=== PATIENT | female | born 1970 | race Hispanic/Latino ===

== ENCOUNTER 2018-05-14 13:26 | Emergency (ER) | payer SELFPAY ==
--- OUTSIDE RECORDS SUMMARY | 2018-05-14 13:29 | XMS REPORT | Clinical Summary ---
:1970 Author Organization [facility] Address [address] [place] [address] Care Team Providers Name Role Phone Sharpfarhana Primary Care Provider Allergies Active Allergy Reactions Severity Noted Date Comments Codeine Other (See Comments) 09/13/2017 Stomach pain Medications Medication Sig Dispensed Refills Start Date End Date Status metoprolol Take 100 mg by 0 Active (TOPROL-XL) 100 MG mouth daily. 24 hr tablet entecavir Take 0.5 mg by 0 Active (BARACLUDE) 0.5 MG mouth daily. tablet aspirin 81 MG Take 1 tablet (81 30 tablet 2 09/16/2017 09/17/19 Active chewable tablet mg total) by 19 mouth daily. atorvastatin Take 1 tablet (40 30 tablet 2 09/15/2017 09/16/19 Active (LIPITOR) 40 MG mg total) by 19 tablet mouth nightly. cyanocobalamin Take 1 tablet 30 tablet 2 09/15/2017 09/16/19 Active (VITAMIN B-12) 100 (100 mcg total) 19 MCG tablet by mouth daily. sulfamethoxazole-tr Take 1 tablet 5 tablet 0 09/15/2017 09/16/19 Discontinued imethoprim (BACTRIM (160 mg of 18 DS) 800-160 mg per trimethoprim tablet total) by mouth 2 (two) times daily for 5 doses. ondansetron Take 1 tablet (4 30 tablet 0 09/15/2017 09/23/19 (ZOFRAN) 4 MG mg total) by 18 tablet mouth every 8 (eight) hours as needed for Nausea for up to 7 days. ciprofloxacin HCl Take 1 tablet 10 tablet 0 09/15/2017 09/21/19 (CIPRO) 500 MG (500 mg total) by 18 tablet mouth 2 (two) times daily for 5 days. Active Problems Problem Noted Date Anxiety 09/15/2017 Essential hypertension 09/13/2017 Hepatitis B 09/13/2017 Hyperlipidemia 09/13/2017 SVT (supraventricular tachycardia) 09/13/2017 UTI (urinary tract infection) 09/13/2017 Ischemic stroke 09/12/2017 S/P admn tPA in diff fac w/n last 24 hr bef adm to crnt fac 09/12/2017 Encounters Date Type Specialty Care Team Description 09/12/2017 - Hospital Intensive Care [facility] Pillai, Ischemic stroke (HCC ); 09/15/2017 Encounter Horacio Hyperlipidemia, unspecified hyperlipidemia type; MD Matt SVT (supraventricular tachycardia) (HCC); Tramaine Murphy Urine culture positive; MD Robert Cerebellar stroke, acute (HCC); Vin Denton Balance problem; MD Anuj Cryptogenic stroke (HCC) after 05/13/2017 Social History Tobacco Use Types Packs/Day Years Used Date Never Smoker Alcohol Use Drinks/Week oz/Week Comments No Sex Assigned at Date Recorded Not on file Job Start Date Occupation Industry Not on file Not on file Not on file Travel History Travel Start Travel End No recent travel history available. Last Filed Vital Signs Vital Sign Reading Time Taken Blood Pressure 118/70 09/15/2017 2:00 PM REVIEW COORDINATOR Pulse 94 09/15/2017 2:00 PM REVIEW COORDINATOR Temperature 36.6 C (97.8 F) 09/15/2017 12:00 PM REVIEW COORDINATOR Respiratory Rate 20 09/15/2017 2:00 PM REVIEW COORDINATOR Oxygen Saturation 100% 09/15/2017 2:00 PM REVIEW COORDINATOR Inhaled Oxygen Concentration - - Weight 62.3 kg (137 lb 5.6 oz) 09/12/2017 11:00 PM REVIEW COORDINATOR Height 157.5 cm (5' 2") 09/12/2017 11:00 PM REVIEW COORDINATOR Body Mass Index 25.12 09/12/2017 11:00 PM REVIEW COORDINATOR Plan of Treatment Not on file Procedures Procedure Name Priority Date/Time Associated Comments Diagnosis REPORT OF PROCEDURE - 09/18/2017 12:51 ENDOSCOPY SCAN PM REVIEW COORDINATOR RHYTHM STRIP - SCAN 09/18/2017 12:50 PM REVIEW COORDINATOR [place] TITER AND PATTERN Routine 09/15/2017 9:47 Results for this AM REVIEW COORDINATOR procedure are in the results section. DOUBLE-STRANDED DNA Routine 09/15/2017 9:47 Results for this (DSDNA) ANTIBODY AM REVIEW COORDINATOR procedure are in the results section. ANTI-NUCLEAR ANTIBODY Routine 09/15/2017 9:47 Results for this ([place]) AM REVIEW COORDINATOR procedure are in the results section. CBC W/PLT COUNT & AUTO Routine 09/15/2017 7:21 Results for this DIFFERENTIAL AM REVIEW COORDINATOR procedure are in the results section. BASIC METABOLIC PANEL Routine 09/15/2017 7:21 Results for this (7) AM REVIEW COORDINATOR procedure are in the results section. CBC W/PLT COUNT & AUTO Routine 09/15/2017 7:21 Results for this DIFFERENTIAL AM REVIEW COORDINATOR procedure are in the results section. ECG 12-LEAD STAT 09/14/2017 4:37 Results for this PM REVIEW COORDINATOR procedure are in the results section. ECHOCARDIOGRAM REPORT 09/14/2017 11:50 - SCAN AM REVIEW COORDINATOR CBC W/PLT COUNT & AUTO Routine 09/14/2017 3:49 Results for this DIFFERENTIAL AM REVIEW COORDINATOR procedure are in the results section. HEPATIC FUNCTION PANEL Routine 09/14/2017 3:49 Results for this AM REVIEW COORDINATOR procedure are in the results section. BASIC METABOLIC PANEL Routine 09/14/2017 3:49 Results for this (7) AM REVIEW COORDINATOR procedure are in the results section. CBC W/PLT COUNT & AUTO Routine 09/14/2017 3:49 Results for this DIFFERENTIAL AM REVIEW COORDINATOR procedure are in the results section. URINALYSIS W/ Routine 09/13/2017 9:08 Results for this MICROSCOPIC PM REVIEW COORDINATOR procedure are in the results section. URINE CULTURE Routine 09/13/2017 9:08 Results for this PM REVIEW COORDINATOR procedure are in the results section. MR MRA HEAD WITHOUT Routine 09/13/2017 6:26 Results for this CONTRAST PM REVIEW COORDINATOR procedure are in the results section. MR MRA NECK WITHOUT IV Routine 09/13/2017 6:07 Results for this CONTRAST PM REVIEW COORDINATOR procedure are in the results section. MR BRAIN WITHOUT IV Routine 09/13/2017 5:58 Results for this CONTRAST PM REVIEW COORDINATOR procedure are in the results section. 2D ECHO W/ DOPPLER Routine 09/13/2017 1:50 Results for this (CW/PW/COLOR) PM REVIEW COORDINATOR procedure are in the results section. URINE CULTURE Routine 09/13/2017 1:12 Results for this PM REVIEW COORDINATOR procedure are in the results section. LUPUS ANTICOAGULANT AP Routine 09/13/2017 10:45 Results for this SCREEN WITH REFLEX TO AM REVIEW COORDINATOR procedure are in CONFIRMATORY the results section. BETA-2 GLYCOPROTEIN Routine 09/13/2017 10:45 Results for this ANTIBODIES AM REVIEW COORDINATOR procedure are in the results section. HOMOCYSTEINE Routine 09/13/2017 10:45 Results for this AM REVIEW COORDINATOR procedure are in the results section. CARDIOLIPIN Routine 09/13/2017 10:44 Results for this ANTIBODIES, IGG AND AM REVIEW COORDINATOR procedure are in IGM the results section. ECG 12-LEAD Routine 09/13/2017 9:25 Results for this AM REVIEW COORDINATOR procedure are in the results section. TROPONIN I Routine 09/13/2017 8:46 Results for this AM REVIEW COORDINATOR procedure are in the results section. URINALYSIS W/ Routine 09/13/2017 5:23 Results for this MICROSCOPIC AM REVIEW COORDINATOR procedure are in the results section. CBC W/PLT COUNT & AUTO Routine 09/13/2017 3:56 Results for this DIFFERENTIAL AM REVIEW COORDINATOR procedure are in the results section. LIPID PANEL Routine 09/13/2017 3:56 Results for this AM REVIEW COORDINATOR procedure are in the results section. BASIC METABOLIC PANEL Routine 09/13/2017 3:56 Results for this (7) AM REVIEW COORDINATOR procedure are in the results section. CBC W/PLT COUNT & AUTO Routine 09/13/2017 3:56 Results for this DIFFERENTIAL AM REVIEW COORDINATOR procedure are in the results section. CBC W/PLT COUNT & AUTO Routine 09/13/2017 12:43 Results for this DIFFERENTIAL AM REVIEW COORDINATOR procedure are in the results section. VITAMIN B12 AND FOLATE Routine 09/13/2017 12:43 Results for this AM REVIEW COORDINATOR procedure are in the results section. TSH/FREE T4 IF Routine 09/13/2017 12:43 Results for this INDICATED AM REVIEW COORDINATOR procedure are in the results section. HEMOGLOBIN A1C Routine 09/13/2017 12:43 Results for this AM REVIEW COORDINATOR procedure are in the results section. TROPONIN I Routine 09/13/2017 12:43 Results for this AM REVIEW COORDINATOR procedure are in the results section. CBC W/PLT COUNT & AUTO Routine 09/13/2017 12:43 Results for this DIFFERENTIAL AM REVIEW COORDINATOR procedure are in the results section. BASIC METABOLIC PANEL Routine 09/13/2017 12:43 Results for this (7) AM REVIEW COORDINATOR procedure are in the results section. after 05/13/2017 Results EKG-SCANNED (09/18/2017 12:51 PM REVIEW COORDINATOR) Narrative Performed At RHYTHM STRIP - SCAN (09/18/2017 12:50 PM REVIEW COORDINATOR) Narrative Performed At [place] Titer & Pattern (09/15/2017 9:47 AM REVIEW COORDINATOR) [place] Titer 1:160 [facility] [place] Pattern Homogeneous [facility] Specimen Blood - Arm, Right Performing Organization Address [facility]/Zipcode Phone Number [address] [address] [place] Double-Stranded DNA (dsDNA) Antibody (09/15/2017 9:47 AM REVIEW COORDINATOR) ds DNA Ab Negative [facility] Specimen Blood - Arm, Right Performing Organization Address [facility]ode Phone Number [address] [address] [place] Anti-Nuclear Antibody ([place]) (09/15/2017 9:47 AM REVIEW COORDINATOR) [place] Positive (A) Negative [facility] Specimen Blood - Arm, Right Performing Organization Address [facility] Centercoal Phone Number [address] [address] [phone] [place] CBC with platelet count + automated diff (09/15/2017 7:21 AM REVIEW COORDINATOR)Only the most recent of4 resultswithin the time period is included. WBC 4.9 3.5 - 10.5 K/L [facility] RBC 4.08 3.93 - 5.22 M/L [facility] Hemoglobin 11.9 11.2 - 15.7 GM/DL [facility] Hematocrit 36.6 34.1 - 44.9 % [facility] MCV 89.7 79.4 - 94.8 fL [facility] MCH 29.2 25.6 - 32.2 pg [facility] MCHC 32.5 32.2 - 35.5 GM/DL [facility] RDW 13.7 11.7 - 14.4 % [facility] Platelets 221 150 - 450 K/CU MM [facility] MPV 11.0 9.4 - 12.3 fL [facility] nRBC 0 0 - 0 /100 WBC [facility] % Neutros 47 % [facility] % Lymphs 42 % [facility] % Monos 8 % [facility] % Eos 2 % [facility] % Baso 0 % [facility] # Neutros 2.32 1.56 - 6.13 K/L [facility] # Lymphs 2.04 1.18 - 3.74 K/L [facility] # Monos 0.41 (H) 0.24 - 0.36 K/L [facility] # Eos 0.10 0.04 - 0.36 K/L [facility] # Baso 0.02 0.01 - 0.08 K/L [facility] Immature Granulocytes-Relative 0 0 - 1 % [facility] Specimen Blood Performing Organization Address City/State/Zipcode Phone Number [facility] [address] [place] [address] CENTER Basic Metabolic Panel (09/15/2017 7:21 AM REVIEW COORDINATOR)Only the most recent of4 resultswithin the time period is included. Sodium 138 136 - 145 meq/L [facility] Potassium 3.9 3.5 - 5.1 meq/L [facility] Chloride 108 (H) 98 - 107 meq/L [facility] CO2 22 22 - 29 meq/L [facility] BUN 10 7 - 21 mg/dL [facility] Creatinine 0.71 0.57 - 1.25 mg/dL [facility] Glucose 84 70 - 105 mg/dL [facility] Calcium 8.5 8.4 - 10.2 mg/dL [facility] EGFR Comment: INSUFFICIENT CLINICAL mL/min/1.73 sq m [facility] DATA TO CALCULATE ESTIMATED MEDICAL CENTER GFR. Specimen Blood Performing Organization Address City/State/Zipcode Phone Number [facility] [address] [place] [address] CENTER ECG 12 lead (09/14/2017 4:37 PM REVIEW COORDINATOR)Only the most recent of2 resultswithin the time period is included. Narrative Performed At Ventricular Rate 89 BPM [place] Atrial Rate 89 BPM P-R Interval 120 ms QRS Duration 82 ms Q-T Interval 388 ms QTC Calculation(Bazett) 472 ms P [place] 15 degrees R [place] 30 degrees T [place] 21 degrees Normal sinus rhythm Normal ECG When compared with ECG of 13-SEP-2017 09:25, T wave inversion no longer evident in Anterior leads Confirmed by Fide STEINBERG, MAURICIO ([id number]) on 09/17/2017 8:43:47 AM Procedure Note Interface, External Ris In - 09/17/2017 8:44 AM REVIEW COORDINATOR Ventricular Rate 89 BPM Atrial Rate 89 BPM P-R Interval 120 ms QRS Duration 82 ms Q-T Interval 388 ms QTC Calculation(Bazett) 472 ms P [place] 15 degrees R [place] 30 degrees T [place] 21 degrees Normal sinus rhythm Normal ECG When compared with ECG of 13-SEP-2017 09:25, T wave inversion no longer evident in Anterior leads Confirmed by Fide STEINBERG BASANT ([id number]) on 09/17/2017 8:43:47 AM Performing Organization Address City/State/Zipcode Phone Number [place] ECHOCARDIOGRAM REPORT - SCAN (09/14/2017 11:50 AM REVIEW COORDINATOR) Narrative Performed At Hepatic function panel (09/14/2017 3:49 AM REVIEW COORDINATOR) Protein, Total 6.1 6.0 - 8.3 gm/dL [facility] Albumin 3.1 (L) 3.5 - 5.0 g/dL [facility] Total Bilirubin 0.4 0.2 - 1.2 mg/dL [facility] Bilirubin, Direct 0.2 0.1 - 0.5 mg/dL [facility] Alkaline Phosphatase 71 40 - 150 U/L [facility] AST 13 5 - 34 U/L [facility] ALT 11 6 - 55 U/L [facility] Specimen Blood Performing Organization Address City/State/Zipcode Phone Number [facility] [address] [place] [address] CENTER Urinalysis w/Microscopic (09/13/2017 9:08 PM REVIEW COORDINATOR)Only the most recent of2 resultswithin the time period is included. Color, UA Light Yellow [facility] Clarity, UA Hazy [facility] Specific [place], UA 1.009 1.001 - 1.035 [facility] pH, UA 6.0 5.0 - 8.0 [facility] Protein, UA Negative Negative [facility] Glucose, UA Negative Negative [facility] Ketones, UA Negative Negative [facility] Bilirubin, UA Negative Negative [facility] Blood, UA Small (A) Negative [facility] Nitrite, UA Negative Negative [facility] Leukocytes, UA Large (A) Negative [facility] Urobilinogen, UA 0.2 0.2 - 1.0 mg/dL [facility] RBC, UA <1 /HPF [facility] WBC, UA 16 /HPF [facility] Squam Epithel, UA 3 /HPF [facility] Specimen Source Urine, Voided [facility]ICAL [facility]ENTER Specimen Urine - Urine, Voided Performing Organization Address City/State/Zipcode Phone Number [facility] [address] [place] [address] [place] Urine culture (09/13/2017 9:08 PM REVIEW COORDINATOR)Only the most recent of2 resultswithin the time period is included. Result >100,000 col/mL Same organism has been isolated from cultures(s) of the same body site within 3 days. Repeat identification and susceptibility testing performed only after consultation with the clinical microbiology laboratory. (A) [facility] Comment: MEDICAL CENTER Refer to previous culture of Klebsiella pneumoniae Specimen Urine - Urine, Voided Performing Organization Address [facility] Cent[facility]ode Phone Number [address] [address] [phone] [place] MR MRA head without contrast (09/13/2017 6:26 PM REVIEW COORDINATOR) Narrative Performed At FINAL REPORT [facility] MRA Head CLINICAL HISTORY: Stroke s/p tPA TECHNIQUE: MRA of the head utilizing 3-D wcnq-jb-wrgugo technique, with 3-D reconstructions. COMPARISON: None FINDINGS: There is no evidence for a [place] proximal branch vessel occlusion. There is a 2 mm protuberance of the left posterior communicating artery segment for which an infundibulum versus aneurysm cannot be distinguished. IMPRESSION: No evidence for a major [place] proximal branch vessel occlusion. 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 MRA Neck CLINICAL HISTORY: Stroke s/p tPA TECHNIQUE: MRA of the neck utilizing 2-D and 3-D rykv-rj-tppnwv technique, with 3-D reconstructions. COMPARISON: None FINDINGS: The carotid arteries in the neck are patent including their bifurcations. There is antegrade flow in the vertebral arteries in the neck. There is left vertebral dominance. IMPRESSION: No evidence of hemodynamically significant stenosis in the cervical carotid or vertebral arteries by NASCET criteria. Signed: Ike Renteria MD Report Verified Date/Time:09/13/2017 19:51:37 Reading Location: [facility] Radiology Reading Room Procedure Note Interface, External Ris In - 09/13/2017 7:53 PM REVIEW COORDINATOR FINAL REPORT MRA Head CLINICAL HISTORY: Stroke s/p tPA TECHNIQUE: MRA of the head utilizing 3-D tfsh-hn-umlqkw technique, with 3-D reconstructions. COMPARISON: None FINDINGS: There is no evidence for a [place] proximal branch vessel occlusion. There is a 2 mm protuberance of the left posterior communicating artery segment for which an infundibulum versus aneurysm cannot be distinguished. IMPRESSION: No evidence for a major [place] proximal branch vessel occlusion. 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 MRA Neck CLINICAL HISTORY: Stroke s/p tPA TECHNIQUE: MRA of the neck utilizing 2-D and 3-D dasv-vl-ungelf technique, with 3-D reconstructions. COMPARISON: None FINDINGS: The carotid arteries in the neck are patent including their bifurcations. There is antegrade flow in the vertebral arteries in the neck. There is left vertebral dominance. IMPRESSION: No evidence of hemodynamically significant stenosis in the cervical carotid or vertebral arteries by NASCET criteria. Signed: Ike Renteria MD Report Verified Date/Time: 09/13/2017 19:51:37 Reading Location: [facility] Radiology Reading Room Performing Organization Address City/State/Zipcode Phone Number [facility] MR MRA neck without contrast (09/13/2017 6:07 PM REVIEW COORDINATOR) Narrative Performed At FINAL REPORT [facility] MRA Head CLINICAL HISTORY: Stroke s/p tPA TECHNIQUE: MRA of the head utilizing 3-D fjfq-gf-proljr technique, with 3-D reconstructions. COMPARISON: None FINDINGS: There is no evidence for a [place] proximal branch vessel occlusion. There is a 2 mm protuberance of the left posterior communicating artery segment for which an infundibulum versus aneurysm cannot be distinguished. IMPRESSION: No evidence for a major [place] proximal branch vessel occlusion. 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 MRA Neck CLINICAL HISTORY: Stroke s/p tPA TECHNIQUE: MRA of the neck utilizing 2-D and 3-D jbll-lc-twmald technique, with 3-D reconstructions. COMPARISON: None FINDINGS: The carotid arteries in the neck are patent including their bifurcations. There is antegrade flow in the vertebral arteries in the neck. There is left vertebral dominance. IMPRESSION: No evidence of hemodynamically significant stenosis in the cervical carotid or vertebral arteries by NASCET criteria. Signed: Ike Renteria MD Report Verified Date/Time:09/13/2017 19:51:37 Reading Location: [facility] Radiology Reading Room Procedure Note Interface, External Ris In - 09/13/2017 7:53 PM REVIEW COORDINATOR FINAL REPORT MRA Head CLINICAL HISTORY: Stroke s/p tPA TECHNIQUE: MRA of the head utilizing 3-D hieu-ar-zqtobi technique, with 3-D reconstructions. COMPARISON: None FINDINGS: There is no evidence for a [place] proximal branch vessel occlusion. There is a 2 mm protuberance of the left posterior communicating artery segment for which an infundibulum versus aneurysm cannot be distinguished. IMPRESSION: No evidence for a major [place] proximal branch vessel occlusion. 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 MRA Neck CLINICAL HISTORY: Stroke s/p tPA TECHNIQUE: MRA of the neck utilizing 2-D and 3-D ossw-th-txjwnz technique, with 3-D reconstructions. COMPARISON: None FINDINGS: The carotid arteries in the neck are patent including their bifurcations. There is antegrade flow in the vertebral arteries in the neck. There is left vertebral dominance. IMPRESSION: No evidence of hemodynamically significant stenosis in the cervical carotid or vertebral arteries by NASCET criteria. Signed: Ike Renteria MD Report Verified Date/Time: 09/13/2017 19:51:37 Reading Location: [facility] Radiology Reading Room Performing Organization Address City/State/Zipcode Phone Number [facility] MR brain without IV contrast (09/13/2017 5:58 PM REVIEW COORDINATOR) Narrative Performed At FINAL REPORT [facility] MRI Brain without contrast Clinical History: Stroke s/p tPA Technique: MRI of the brain utilizing axial T2, FLAIR, GRE, DWI; sagittal and coronal T1-weighted images. Comparisons: None Findings: There is a possible punctate acute infarct of the posterior left cerebellum. There is no hemorrhage. There are a few scattered nonspecific foci of FLAIR signal abnormality in the subcortical and periventricular white matter. There is no hydrocephalus, midline shift, or apparent mass effect. There are no extra-axial fluid collections. The craniocervical junction is preserved. The major intracranial flow-voids appear patent. An air-fluid level in the right sphenoid sinus may represent acute sinusitis in the correct clinical scenario. IMPRESSION: Possible punctate acute infarct of the posterior left cerebellum without hemorrhage. Signed: Ike Renteria MD Report Verified Date/Time:09/13/2017 18:13:57 Reading Location: [facility] Reading Room Procedure Note Interface, External Ris In - 09/13/2017 6:16 PM REVIEW COORDINATOR FINAL REPORT MRI Brain without contrast Clinical History: Stroke s/p tPA Technique: MRI of the brain utilizing axial T2, FLAIR, GRE, DWI; sagittal and coronal T1-weighted images. Comparisons: None Findings: There is a possible punctate acute infarct of the posterior left cerebellum. There is no hemorrhage. There are a few scattered nonspecific foci of FLAIR signal abnormality in the subcortical and periventricular white matter. There is no hydrocephalus, midline shift, or apparent mass effect. There are no extra-axial fluid collections. The craniocervical junction is preserved. The major intracranial flow-voids appear patent. An air-fluid level in the right sphenoid sinus may represent acute sinusitis in the correct clinical scenario. IMPRESSION: Possible punctate acute infarct of the posterior left cerebellum without hemorrhage. Signed: Ike Renteria MD Report Verified Date/Time: 09/13/2017 18:13:57 Reading Location: [facility] Radiology Reading Room Performing Organization Address City/State/Zipcode Phone Number [facility] 2D Echo W/Doppler(CW/PW/Color) with saline (09/13/2017 1:50 PM REVIEW COORDINATOR) Ejection Fraction [facility] Narrative Performed At Transthoracic Echocardiography Report (TTE) 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 Clinical History HGB 11.5 HCT 35.3 % HTN, Hep.B, Ischemic stroke Height: 62 inches Weight: 62.14 kg (137 lbs) BSA: 1.63 m^2 BMI: 25.06 kg/m^2 HR: 70 bpm BP: 118/73 mmHg Summary Normal left ventricular chamber size. Normal wall thickness. Normal overall left ventricular systolic function. No apparent segmental wall motion abnormalities. Estimated LVEF by qualitative assessment is normal (>60%) . Normal right ventricle structure and function. Estimated peak systolic PA pressure is 30-35 mmHg . No evidence of pericardial effusion. Signature Findings Technical Quality: Technically adequate exam. Left Ventricle Normal left ventricular chamber size. Normal wall th ickness. Normal overall left ventricular systolic fu nction. No apparent segmental wall motion ab normalities. Estimated LVEF by qualitative as sessment is normal (>60%) . Left AtriumLA size is normal . Right VentricleNormal right ventricle structure and function. Right Atrium Normal right atrium. Aortic Valve Normal AoV structure. Mitral Valve Normal MV structure. Tricuspid ValveMild tricuspid regurgitation. Es timated peak systolic PA pressure is 30-35 mmHg . Pulmonic Valve Normal PV structure and function by limited views an d Doppler. AortaAortic root size (SInus of Valsalva diameter) is no rmal . PericardiumNo evidence of pericardial effusion. IVC/SVC/PA/PV/PleuralThe estimated RA pressure by IVC dynamics 5-10mmHg . Chambers/Structures Left Atrium LA Dimension: 3.01 cm LA Area: 16.2 cm^2 LA Volume: 38.71 ml LA Vol. Index: 24 ml/m^2 Left Ventricle LVIDd: 4.49 cm LV Septum Diastolic: 0.74 cm LV PW Diastolic: 0.88 cm Aorta Ao Root S of Shanna.: 2.82 cm Doppler/Quantitative Measurements LVOT Peak Velocity: 1.27 m/s Peak Gradient: 6.44 mmHg Mean Velocity: 0.71 m/s Mean Gradient: 2.61 mmHg LVOT VTI: 22.61 cm Procedure Note Interface, External Ris In - 09/14/2017 11:05 AM REVIEW COORDINATOR Transthoracic Echocardiography Report (TTE) Demographics Patient Name ANJELICA PEARSON Date of Study 09/13/2017 Gender Female Visit Number [id number] Race Room Number 7401 Number Date of 1970 Referring Physician HORACIO TSE Age 47 year(s) [employer]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 Clinical History HGB 11.5 HCT 35.3 % HTN, Hep.B, Ischemic stroke Height: 62 inches Weight: 62.14 kg (137 lbs) BSA: 1.63 m^2 BMI: 25.06 kg/m^2 HR: 70 bpm BP: 118/73 mmHg Summary Normal left ventricular chamber size. Normal wall thickness. Normal overall left ventricular systolic function. No apparent segmental wall motion abnormalities. Estimated LVEF by qualitative assessment is normal (>60%) . Normal right ventricle structure and function. Estimated peak systolic PA pressure is 30-35 mmHg . No evidence of pericardial effusion. Signature Findings Technical Quality: Technically adequate exam. Left Ventricle Normal left ventricular chamber size. Normal wall thickness. Normal overall left ventricular systolic function. No apparent segmental wall motion abnormalities. Estimated LVEF by qualitative assessment is normal (>60%) . Left Atrium LA size is normal . Right Ventricle Normal right ventricle structure and function. Right Atrium Normal right atrium. Aortic Valve Normal AoV structure. Mitral Valve Normal MV structure. Tricuspid Valve Mild tricuspid regurgitation. Estimated peak systolic PA pressure is 30-35 mmHg . Pulmonic Valve Normal PV structure and function by limited views and Doppler. Aorta Aortic root size (SInus of Valsalva diameter) is normal . Pericardium No evidence of pericardial effusion. IVC/SVC/PA/PV/Pleural The estimated RA pressure by IVC dynamics 5-10mmHg . Chambers/Structures Left Atrium LA Dimension: 3.01 cm LA Area: 16.2 cm^2 LA Volume: 38.71 ml LA Vol. Index: 24 ml/m^2 Left Ventricle LVIDd: 4.49 cm LV Septum Diastolic: 0.74 cm LV PW Diastolic: 0.88 cm Aorta Ao Root S of Shanna.: 2.82 cm Doppler/Quantitative Measurements LVOT Peak Velocity: 1.27 m/s Peak Gradient: 6.44 mmHg Mean Velocity: 0.71 m/s Mean Gradient: 2.61 mmHg LVOT VTI: 22.61 cm Performing Organization Address City/State/[facility] Centercode Phone Number [facility] Lupus Anticoagulant Screen with Reflex To Confirmatory (09/13/2017 10:45 AM REVIEW COORDINATOR) DRVV Screen Ratio 0.71 <1.20 [facility] Interpretations Negative screen for Lupus [facility] Anticoagulant [facility] Protime 13.5 11.7 - 14.7 seconds [facility] INR 1.0 <=5.9 [facility] PTT 23.5 22.5 - 36.0 seconds [facility] PTT-LA 26.7 (L) 32.0 - 41.8 [facility] Pathologist: Irvin Henderson M.D. [facility] (electonic signature) [facility] Specimen Blood - Line, Venous Performing Organization Address City/[facility]/Zipcode Phone Number [address] [address] CENTER Beta-2 glycoprotein antibodies (09/13/2017 10:45 AM REVIEW COORDINATOR) B2 Glcoprotein Ab Profile Refer to individual [facility] B2-Glycoprotein IgG, IgM INCORPORATED and IgA results. Specimen Blood - Line, Venous Performing Organization Address City/State/Zipcode Phone Number [facility] [address] INCORPORATED [id number] [facility] Homocysteine (09/13/2017 10:45 AM REVIEW COORDINATOR) Homocysteine 6.7 5.1 - 15.4 umol/L [facility] Specimen Blood - Line, Venous Performing Organization Address City/State/Zipcode Phone Number [address] [address] [phone] CENTER Cardiolipin Antibodies, IgG and IgM (09/13/2017 10:44 AM REVIEW COORDINATOR) Anticardiolipin IgG <1.6 GPL [facility] Anticardiolipin IgM 1.8 MPL [facility] Specimen Blood - Line, Venous Narrative Performed At Anticardiolipin IgG Result Interpretation: [facility] NEG:<20 GPL;U/ml POS:>/=20 GPL;U/ml Anticardiolipin IgM Result Interpretation: NEG:<20 MPL;U/ml POS:>/=20 MPL;U/ml Performing Organization Address [facility]coal Phone Number [address] [phone] [place] Troponin I (09/13/2017 8:46 AM REVIEW COORDINATOR)Only the most recent of2 resultswithin the time period is included. Troponin I <0.01 0.00 - 0.03 ng/mL [facility] Specimen Blood - Line, Venous Narrative Performed At [facility] Troponin I (TnI) levels must be interpreted in the context of the presenting symptoms and the clinical findings. Elevated TnI levels indicate myocardial damage, but are not specific for ischemic heart disease. Elevated TnI levels are seen in patients with other cardiac conditions (including myocarditis and congestive heart failure), and slight TnI elevations occur in patients with other conditions, including sepsis, renal failure, acidosis, acute neurological disease, and persistent tachyarrhythmia. Performing Organization Address [facility] Phone Number [address] [address] [place] Fasting lipid panel (09/13/2017 3:56 AM REVIEW COORDINATOR) Triglycerides 93Comment: Specimen slightly mg/dL [facility] Cholesterol 178Comment: Specimen slightly mg/dL [facility] HDL 49 mg/dL [facility] LDL Calculated 110 mg/dL [facility] Specimen Blood - Line, Venous Narrative Performed At [facility] Triglyceride Reference Range: Low Risk <150 [id number] High Risk 200-499 Very High Risk>=500 Cholesterol Reference Range: Low Risk <200 [id number] High Risk>240 HDL Cholesterol Reference Range: Low Risk >=60 High Risk <40 LDL Cholesterol Reference Range: Optimal<100 Near [id number] Very High >=190 Fasting Performing Organization Address [facility] Centercode Phone Number [address] [address] [phone] [place] Vitamin B12 and Folate (09/13/2017 12:43 AM REVIEW COORDINATOR) Vitamin B12 166 (L) 213 - 816 pg/mL [facility] Folate 12.0 >=7.0 ng/mL [facility] Specimen Blood - Line, Venous Performing Organization Address [facility] Phone Number [address] [address] [place] TSH/Free T4 If Indicated (09/13/2017 12:43 AM REVIEW COORDINATOR) TSH 1.31 0.35 - 4.94 uIU/mL [facility] Specimen Blood - Line, Venous Performing Organization Address [facility] Phone Number [address] [address] [place] Hemoglobin A1c (09/13/2017 12:43 AM REVIEW COORDINATOR) Hemoglobin A1C 5.6 4.3 - 6.1 % [facility] Specimen Blood - Line, Venous Performing Organization Address [facility] Phone Number [address] [phone] [place] after 05/13/2017 Advance Directives For more information, please contact:[address] [phone] Code Status Date Activated Date Inactivated Comments Full Code 09/12/2017 11:57 PM 09/15/2017 7:30 PM This code status was determined by: Patient
--- OUTSIDE RECORDS SUMMARY | 2018-05-14 13:29 | XMS REPORT ---
:1970 [facility] [address] [place] [address] Care Team Providers Name Role Phone HORACIO WEST Unavailable Unavailable Problems This patient has no known problems. Allergies, Adverse Reactions, Alerts This patient has no known allergies or adverse reactions. Medications This patient has no known medications. Results Test Description Test Time Test Comments Text Results Atomic Results Result Comments DOUBLE-STRANDED DNA (DSDNA) ANTIBODY 2017-09-19 09:29:00 Test Item Value Reference Range Comments ANTI-DNA DS (BEAKER) (test qgcs=9184) Negative LUPUS ANTICOAGULANT SCREEN WITH REFLEX TO [id number] 14:05:00 Test Item Value Reference Range Comments DRVV SCREEN RATIO (BEAKER) 0.71 <1.20 (test vyzt=2562) DRVV INTERPRETATION (BEAKER) Negative screen for Lupus (test uvip=9493) Anticoagulant PROTIME (BEAKER) (test 13.5 seconds 11.7-14.7 bvug=794) INR (BEAKER) (test qixj=166) 1.0 <=5.9 PARTIAL THROMBOPLASTIN TIME 23.5 seconds 22.5-36.0 (BEAKER) (test dsrd=199) PTT-LA (BEAKER) (test 26.7 32.0-41.8 psks=[id number]) [id number] (BEAKER) Irvin Henderson M.D. (test eyxx=3863) (electonic signature) ANTI-NUCLEAR ANTIBODY ([place])2017-09-18 10:00:00 Test Item Value Reference Range Comments ANTI-NUCLEAR ANTIBODY ([place]) (BEAKER) (test Positive Negative hojk=986) [place] TITER AND [id number] 10:00:00 Test Item Value Reference Range Comments [place] TITER (BEAKER) (test zusz=7223) :160 [place] PATTERN (BEAKER) (test kiez=5595) Homogeneous URINE [id number] 10:24:00 Test Item Value Reference Range Comments CULTURE (BEAKER) (test >100,000 col/mL Same organism has zgwx=5247) been isolated from cultures(s) of the same body site within 3 days. Repeat identification and susceptibility testing performed only after consultation with the clinical microbiology laboratory.Refer to previous culture ofKlebsiella pneumoniae URINE [id number] 09:32:00 Test Item Value Reference Range Comments CULTURE (BEAKER) (test hufv=9424) Amikacin (test code=1) Ampicillin + Sulbactam (test code=6) Aztreonam (test code=32) Cefepime (test code=51) Cefoxitin (test code=68) Ceftazidime (test code=27) Ceftriaxone (test code=52) Ertapenem (test code=38) Gentamicin (test code=18) Levofloxacin (test code=22) Meropenem (test code=34) Nitrofurantoin (test code=23) Piperacillin + Tazobactam (test code=29) Tetracycline (test code=2) Tobramycin (test code=25) Trimethoprim + Sulfamethoxazole (test code=47) CULTURE (BEAKER) (test sgvj=1367) >100,000 col/mL Klebsiella pneumoniae CBC W/PLT COUNT & AUTO [id number] 08:12:00 Test Item Value Reference Range Comments WHITE BLOOD CELL COUNT (BEAKER) (test aawe=803) 4.9 K/ L 3.5-10.5 RED BLOOD CELL COUNT (BEAKER) (test jhwm=110) 4.08 M/ L 3.93-5.22 HEMOGLOBIN (BEAKER) (test wrxs=170) 11.9 GM/DL 11.2-15.7 HEMATOCRIT (BEAKER) (test cipc=376) 36.6 % 34.1-44.9 MEAN CORPUSCULAR VOLUME (BEAKER) (test vjzn=341) 89.7 fL 79.4-94.8 MEAN CORPUSCULAR HEMOGLOBIN (BEAKER) (test 29.2 pg 25.6-32.2 unrm=603) MEAN CORPUSCULAR HEMOGLOBIN CONC (BEAKER) (test 32.5 GM/DL 32.2-35.5 sipg=648) RED CELL DISTRIBUTION WIDTH (BEAKER) (test 13.7 % 11.7-14.4 qxpe=412) PLATELET COUNT (BEAKER) (test yglk=672) 221 K/CU MM 150-450 MEAN PLATELET VOLUME (BEAKER) (test dhin=202) 11.0 fL 9.4-12.3 NUCLEATED RED BLOOD CELLS (BEAKER) (test 0 /100 WBC 0-0 tdyp=713) NEUTROPHILS RELATIVE PERCENT (BEAKER) (test 47 % vlqi=182) LYMPHOCYTES RELATIVE PERCENT (BEAKER) (test 42 % pwwn=543) MONOCYTES RELATIVE PERCENT (BEAKER) (test 8 % ccub=034) EOSINOPHILS RELATIVE PERCENT (BEAKER) (test 2 % ltur=710) BASOPHILS RELATIVE PERCENT (BEAKER) (test 0 % vcdb=723) NEUTROPHILS ABSOLUTE COUNT (BEAKER) (test 2.32 K/ L 1.56-6.13 kczq=963) LYMPHOCYTES ABSOLUTE COUNT (BEAKER) (test 2.04 K/ L 1.18-3.74 zmud=620) MONOCYTES ABSOLUTE COUNT (BEAKER) (test 0.41 K/ L 0.24-0.36 tulf=053) EOSINOPHILS ABSOLUTE COUNT (BEAKER) (test 0.10 K/ L 0.04-0.36 evam=010) BASOPHILS ABSOLUTE COUNT (BEAKER) (test 0.02 K/ L 0.01-0.08 eqas=301) IMMATURE GRANULOCYTES-RELATIVE PERCENT (BEAKER) 0 % 0-1 (test xmzo=0721) BASIC METABOLIC [id number] 08:08:00 Test Item Value Reference Range Comments SODIUM (BEAKER) (test 138 meq/L 136-145 oavy=321) POTASSIUM (BEAKER) (test 3.9 meq/L 3.5-5.1 kvbw=483) CHLORIDE (BEAKER) (test 108 meq/L 98-107 odes=070) CO2 (BEAKER) (test 22 meq/L 22-29 twik=168) BLOOD UREA NITROGEN 10 mg/dL 7-21 (BEAKER) (test ftai=263) CREATININE (BEAKER) (test 0.71 mg/dL 0.57-1.25 xokc=249) GLUCOSE RANDOM (BEAKER) 84 mg/dL 70-105 (test snnc=744) CALCIUM (BEAKER) (test 8.5 mg/dL 8.4-10.2 vyqm=719) EGFR (BEAKER) (test mL/min/1.73 sq m INSUFFICIENT CLINICAL DATA uyad=4236) TO CALCULATE ESTIMATED GFR. CARDIOLIPIN ANTIBODIES, IGG AND [id number] 14:48:00 Test Item Value Reference Range Comments ANTICARDIOLIPIN IGG ANTIBODY (BEAKER) (test < GPL glpq=704) ANTICARDIOLIPIN IGM ANTIBODY (BEAKER) (test 1.8 MPL hadv=673) Anticardiolipin IgG Result Interpretation:NEG: <20 GPL; U/mlPOS: >/=20 GPL; U/mlAnticardiolipin IgM Result Interpretation:NEG: <20 MPL; U/mlPOS: >/=20 MPL; U/mlBASIC METABOLIC [id number] 04:53:00 Test Item Value Reference Range Comments SODIUM (BEAKER) (test 137 meq/L 136-145 onvh=821) POTASSIUM (BEAKER) (test 4.2 meq/L 3.5-5.1 jedn=677) CHLORIDE (BEAKER) (test 111 meq/L 98-107 pont=670) CO2 (BEAKER) (test 20 meq/L 22-29 vewy=287) BLOOD UREA NITROGEN 11 mg/dL 7-21 (BEAKER) (test lhwg=435) CREATININE (BEAKER) (test 0.67 mg/dL 0.57-1.25 ppfx=098) GLUCOSE RANDOM (BEAKER) 96 mg/dL 70-105 (test uahz=050) CALCIUM (BEAKER) (test 8.0 mg/dL 8.4-10.2 qcmi=870) EGFR (BEAKER) (test mL/min/1.73 sq m INSUFFICIENT CLINICAL DATA gdcd=1066) TO CALCULATE ESTIMATED GFR. HEPATIC FUNCTION [id number] 04:51:00 Test Item Value Reference Range Comments TOTAL PROTEIN (BEAKER) (test ijja=056) 6.1 gm/dL 6.0-8.3 ALBUMIN (BEAKER) (test xfmh=1958) 3.1 g/dL 3.5-5.0 BILIRUBIN TOTAL (BEAKER) (test kpae=933) 0.4 mg/dL 0.2-1.2 BILIRUBIN DIRECT (BEAKER) (test lkux=389) 0.2 mg/dL 0.1-0.5 ALKALINE PHOSPHATASE (BEAKER) (test uark=141) 71 U/L 40-150 AST (SGOT) (BEAKER) (test fbbf=356) 13 U/L 5-34 ALT (SGPT) (BEAKER) (test bjfp=141) 11 U/L 6-55 CBC W/PLT COUNT & AUTO [id number] 04:11:00 Test Item Value Reference Range Comments WHITE BLOOD CELL COUNT (BEAKER) (test giwu=455) 5.6 K/ L 3.5-10.5 RED BLOOD CELL COUNT (BEAKER) (test zqda=952) 3.98 M/ L 3.93-5.22 HEMOGLOBIN (BEAKER) (test lmla=257) 11.5 GM/DL 11.2-15.7 HEMATOCRIT (BEAKER) (test qpoy=880) 36.6 % 34.1-44.9 MEAN CORPUSCULAR VOLUME (BEAKER) (test qipm=082) 92.0 fL 79.4-94.8 MEAN CORPUSCULAR HEMOGLOBIN (BEAKER) (test 28.9 pg 25.6-32.2 skrr=295) MEAN CORPUSCULAR HEMOGLOBIN CONC (BEAKER) (test 31.4 GM/DL 32.2-35.5 jnid=128) RED CELL DISTRIBUTION WIDTH (BEAKER) (test 14.3 % 11.7-14.4 pavw=767) PLATELET COUNT (BEAKER) (test bucw=009) 214 K/CU MM 150-450 MEAN PLATELET VOLUME (BEAKER) (test tlfu=695) 10.9 fL 9.4-12.3 NUCLEATED RED BLOOD CELLS (BEAKER) (test 0 /100 WBC 0-0 znpf=204) NEUTROPHILS RELATIVE PERCENT (BEAKER) (test 51 % hczh=541) LYMPHOCYTES RELATIVE PERCENT (BEAKER) (test 39 % ykey=619) MONOCYTES RELATIVE PERCENT (BEAKER) (test 8 % nysq=347) EOSINOPHILS RELATIVE PERCENT (BEAKER) (test 2 % zvit=467) BASOPHILS RELATIVE PERCENT (BEAKER) (test 0 % wfjo=960) NEUTROPHILS ABSOLUTE COUNT (BEAKER) (test 2.81 K/ L 1.56-6.13 fgsr=907) LYMPHOCYTES ABSOLUTE COUNT (BEAKER) (test 2.16 K/ L 1.18-3.74 ovxx=205) MONOCYTES ABSOLUTE COUNT (BEAKER) (test 0.42 K/ L 0.24-0.36 sydj=507) EOSINOPHILS ABSOLUTE COUNT (BEAKER) (test 0.13 K/ L 0.04-0.36 kain=123) BASOPHILS ABSOLUTE COUNT (BEAKER) (test 0.01 K/ L 0.01-0.08 kwmd=239) IMMATURE GRANULOCYTES-RELATIVE PERCENT (BEAKER) 0 % 0-1 (test mtif=2277) URINALYSIS W/ [id number] 21:39:00 Test Item Value Reference Range Comments COLOR (BEAKER) (test ycuh=304) Light Yellow CLARITY (BEAKER) (test bipc=085) Hazy SPECIFIC GRAVITY UA (BEAKER) (test ewcd=185) 1.009 1.001-1.035 PH UA (BEAKER) (test ohub=860) 6.0 5.0-8.0 PROTEIN UA (BEAKER) (test bqct=490) Negative Negative GLUCOSE UA (BEAKER) (test nuac=240) Negative Negative KETONES UA (BEAKER) (test suzq=622) Negative Negative BILIRUBIN UA (BEAKER) (test upqf=353) Negative Negative BLOOD UA (BEAKER) (test iiao=901) Small Negative NITRITE UA (BEAKER) (test eliy=641) Negative Negative LEUKOCYTE ESTERASE UA (BEAKER) (test gsno=498) Large Negative UROBILINOGEN UA (BEAKER) (test lphj=699) 0.2 mg/dL 0.2-1.0 RBC UA (BEAKER) (test klua=129) < /HPF WBC UA (BEAKER) (test plgv=833) 16 /HPF SQUAMOUS EPITHELIAL (BEAKER) (test yykd=961) 3 /HPF SOURCE(BEAKER) (test ycpy=3835) Urine, Voided MR, MRA, BRAIN, WITHOUT [id number] 19:51:00Reason for exam:->Stroke s /p tPAWhat is the patient's sedation requirement?->No SedationFINAL REPORT MRA Head CLINICAL HISTORY: Stroke s/p tPA TECHNIQUE: MRA of the head utilizing 3-D mqes-kt-rdoadm technique, with 3-D reconstructions. COMPARISON: None FINDINGS: There is no evidence for a [place] proximal branch vessel occlusion. There is a 2 mm protuberance of the left posterior communicating artery segment for which an infundibulum versus aneurysm cannot be distinguished. IMPRESSION: No evidence for a major [place] proximal branch vessel occlusion. 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 MRA Neck CLINICAL HISTORY: Stroke s/p tPA TECHNIQUE: MRA of the neck utilizing 2-D and 3-D ipja-cp-zwkqzy technique, with 3-D reconstructions. COMPARISON: None FINDINGS: The carotid arteries in the neck are patent including their bifurcations. There is antegrade flow in the vertebral arteries in the neck. There is left vertebral dominance. IMPRESSION: No evidence of hemodynamically significant stenosis in the cervical carotid or vertebral arteries by NASCET criteria. Signed: Ike Renteria Verified Date/Time: 09/13/2017 19:51:37 Reading Location: [facility] Reading Room MR, MRA, NECK, WITHOUT IV [id number] 19:51:00FINAL REPORT MRA Head CLINICAL HISTORY: Stroke s/p tPA TECHNIQUE: MRA of the head utilizing 3-D pbvt-md-lcrtgi technique, with 3-D reconstructions. COMPARISON: None FINDINGS: There is no evidence for a [place] proximal branch vessel occlusion. There is a 2 mm protuberance of the left posterior communicating artery segment for which an infundibulum versus aneurysm cannot be distinguished. IMPRESSION: No evidence for a major [place] proximal branch vessel occlusion. 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 MRA Neck CLINICAL HISTORY: Stroke s/p tPA TECHNIQUE: MRA of the neck utilizing 2-D and 3-D auiv-rz-rdkeiu technique, with 3-D reconstructions. COMPARISON: None FINDINGS: The carotid arteries in the neck are patent including their bifurcations. There is antegrade flow in the vertebral arteries in the neck. There is left vertebral dominance. IMPRESSION: No evidence of hemodynamically significant stenosis in the cervical carotid or vertebral arteries by NASCET criteria. Signed: Ike Renteria Verified Date/Time: 09/13/2017 19:51:37 Reading Location: [facility] Reading Room MR, BRAIN, WITHOUT [id number] 18:13:00Reason for exam:-> Stroke s/p tPAWhat is the patient's sedation requirement?->No SedationFINAL REPORT MRI Brain without contrast Clinical History: Stroke s/p tPA Technique: MRI of the brain utilizing axial T2, FLAIR, GRE, DWI; sagittal and coronal T1-weighted images.Comparisons: None Findings: There is a possible punctate [...] acute sinusitis in the correct clinical scenario. IMPRESSION : Possible punctate acute infarct of the posterior left cerebellum without hemorrhage. Signed: Ike Renteria MDReport Verified Date/Time: 09/13/2017 18:13 :57 Reading Location: [facility] Reading Room [id number] 12: 47:00 Test Item Value Reference Range Comments HOMOCYSTEINE (BEAKER) (test qqyf=007) 6.7 umol/L 5.1-15.4 TROPONIN [id number] 09:59:00 Test Item Value Reference Range Comments TROPONIN I (BEAKER) (test wxlx=980) < ng/mL 0.00-0.03 Troponin I (TnI) levels must be interpreted [...] failure, acidosis, acute neurological disease, and persistent tachyarrhythmia.URINALYSIS W/ [id number] 05: 52:00 Test Item Value Reference Range Comments COLOR (BEAKER) (test oyen=592) Light Yellow CLARITY (BEAKER) (test fovu=095) Hazy SPECIFIC GRAVITY UA (BEAKER) (test xtpq=868) 1.007 1.001-1.035 PH UA (BEAKER) (test xioy=246) 7.0 5.0-8.0 PROTEIN UA (BEAKER) (test miou=106) Negative Negative GLUCOSE UA (BEAKER) (test bycz=724) Negative Negative KETONES UA (BEAKER) (test vpva=752) Negative Negative BILIRUBIN UA (BEAKER) (test czpd=208) Negative Negative BLOOD UA (BEAKER) (test uvsq=036) Moderate Negative NITRITE UA (BEAKER) (test nmli=134) Positive Negative LEUKOCYTE ESTERASE UA (BEAKER) (test hfax=249) Large Negative UROBILINOGEN UA (BEAKER) (test rxzw=796) 0.2 mg/dL 0.2-1.0 RBC UA (BEAKER) (test likh=649) 3 /HPF WBC UA (BEAKER) (test buwy=060) 5 /HPF BACTERIA (BEAKER) (test lddb=966) Moderate MUCUS (BEAKER) (test neuf=7358) Occasional SQUAMOUS EPITHELIAL (BEAKER) (test iyzb=597) 5 /HPF AMORPHOUS CRYSTALS (BEAKER) (test jmul=2577) Rare SOURCE(BEAKER) (test guvz=4977) Urine, Voided HEMOGLOBIN [id number] 05:17:00 Test Item Value Reference Range Comments HEMOGLOBIN A1C (BEAKER) (test ztis=212) 5.6 % 4.3-6.1 BASIC METABOLIC [id number] 04:24:00 Test Item Value Reference Range Comments SODIUM (BEAKER) (test 137 meq/L 136-145 ctxo=880) POTASSIUM (BEAKER) (test 4.3 meq/L 3.5-5.1 Specimen slightly cuxa=094) hemolyzed CHLORIDE (BEAKER) (test 108 meq/L 98-107 eoum=813) CO2 (BEAKER) (test 22 meq/L 22-29 badl=595) BLOOD UREA NITROGEN 9 mg/dL 7-21 (BEAKER) (test rnwb=149) CREATININE (BEAKER) (test 0.65 mg/dL 0.57-1.25 Specimen slightly igeg=163) hemolyzed GLUCOSE RANDOM (BEAKER) 93 mg/dL 70-105 (test lpli=971) CALCIUM (BEAKER) (test 8.2 mg/dL 8.4-10.2 mpeb=623) EGFR (BEAKER) (test mL/min/1.73 sq m INSUFFICIENT CLINICAL DATA crdr=9095) TO CALCULATE ESTIMATED GFR. FastingLIPID [id number] 04:22:00 Test Item Value Reference Range Comments TRIGLYCERIDES (BEAKER) (test 93 mg/dL Specimen slightly hemolyzed mfgx=153) CHOLESTEROL (BEAKER) (test 178 mg/dL Specimen slightly hemolyzed cdyc=566) HDL CHOLESTEROL (BEAKER) (test 49 mg/dL clir=221) LDL CHOLESTEROL CALCULATED 110 mg/dL (BEAKER) (test czxl=878) Triglyceride Reference Range: Low Risk <150 Borderline 150- 199 High Risk 200-499 Very High Risk >=500Cholesterol Reference Range: Low Risk <200 Borderline 200-239 High Risk > 240HDL Cholesterol Reference Range: Low Risk >=60 High Risk <40LDL Cholesterol Reference Range: Optimal <100 Near Optimal 100-129 Borderline 130-159 High 160-189 Very High >=190 FastingCBC W/PLT COUNT & AUTO [id number] 04:07:00 Test Item Value Reference Range Comments WHITE BLOOD CELL COUNT (BEAKER) (test illo=267) 6.4 K/ L 3.5-10.5 RED BLOOD CELL COUNT (BEAKER) (test wnsj=394) 4.00 M/ L 3.93-5.22 HEMOGLOBIN (BEAKER) (test wjec=224) 11.5 GM/DL 11.2-15.7 HEMATOCRIT (BEAKER) (test dzjn=634) 35.3 % 34.1-44.9 MEAN CORPUSCULAR VOLUME (BEAKER) (test lxre=455) 88.3 fL 79.4-94.8 MEAN CORPUSCULAR HEMOGLOBIN (BEAKER) (test 28.8 pg 25.6-32.2 lfpp=584) MEAN CORPUSCULAR HEMOGLOBIN CONC (BEAKER) (test 32.6 GM/DL 32.2-35.5 btld=312) RED CELL DISTRIBUTION WIDTH (BEAKER) (test 13.8 % 11.7-14.4 osnx=694) PLATELET COUNT (BEAKER) (test ntdb=663) 236 K/CU MM 150-450 MEAN PLATELET VOLUME (BEAKER) (test qtfy=343) 10.8 fL 9.4-12.3 NUCLEATED RED BLOOD CELLS (BEAKER) (test 0 /100 WBC 0-0 itdx=047) NEUTROPHILS RELATIVE PERCENT (BEAKER) (test 58 % tzig=530) LYMPHOCYTES RELATIVE PERCENT (BEAKER) (test 33 % lumm=668) MONOCYTES RELATIVE PERCENT (BEAKER) (test 8 % vfdg=916) EOSINOPHILS RELATIVE PERCENT (BEAKER) (test 1 % zkbb=727) BASOPHILS RELATIVE PERCENT (BEAKER) (test 0 % ucmv=352) NEUTROPHILS ABSOLUTE COUNT (BEAKER) (test 3.70 K/ L 1.56-6.13 wkap=847) LYMPHOCYTES ABSOLUTE COUNT (BEAKER) (test 2.07 K/ L 1.18-3.74 hdcz=359) MONOCYTES ABSOLUTE COUNT (BEAKER) (test 0.51 K/ L 0.24-0.36 sfbj=697) EOSINOPHILS ABSOLUTE COUNT (BEAKER) (test 0.06 K/ L 0.04-0.36 qogm=177) BASOPHILS ABSOLUTE COUNT (BEAKER) (test 0.02 K/ L 0.01-0.08 xqoo=068) IMMATURE GRANULOCYTES-RELATIVE PERCENT (BEAKER) 0 % 0-1 (test mike=1473) TSH/FREE T4 IF [id number] 02:20:00 Test Item Value Reference Range Comments THYROID STIMULATING HORMONE (BEAKER) (test 1.31 uIU/mL 0.35-4.94 rjws=197) VITAMIN B12 AND [id number] 02:20:00 Test Item Value Reference Range Comments VITAMIN B12 (BEAKER) (test cush=028) 166 pg/mL 213-816 FOLATE (BEAKER) (test qgvx=633) 12.0 ng/mL >=7.0 TROPONIN [id number] 01:53:00 Test Item Value Reference Range Comments TROPONIN I (BEAKER) (test bizg=790) < ng/mL 0.00-0.03 Troponin I (TnI) levels must be interpreted [...] failure, acidosis, acute neurological disease, and persistent tachyarrhythmia.BASIC METABOLIC [id number] 01:53:00 Test Item Value Reference Range Comments SODIUM (BEAKER) (test 139 meq/L 136-145 tjwk=585) POTASSIUM (BEAKER) (test 4.1 meq/L 3.5-5.1 jjfo=682) CHLORIDE (BEAKER) (test 108 meq/L 98-107 kbjk=661) CO2 (BEAKER) (test 22 meq/L 22-29 xeiv=861) BLOOD UREA NITROGEN 10 mg/dL 7-21 (BEAKER) (test lulf=227) CREATININE (BEAKER) (test 0.67 mg/dL 0.57-1.25 mvru=198) GLUCOSE RANDOM (BEAKER) 101 mg/dL 70-105 (test qcfs=915) CALCIUM (BEAKER) (test 8.5 mg/dL 8.4-10.2 veji=359) EGFR (BEAKER) (test mL/min/1.73 sq m INSUFFICIENT CLINICAL DATA knvz=9567) TO CALCULATE ESTIMATED GFR. CBC W/PLT COUNT & AUTO [id number] 01:28:00 Test Item Value Reference Range Comments WHITE BLOOD CELL COUNT (BEAKER) (test bjib=180) 7.0 K/ L 3.5-10.5 RED BLOOD CELL COUNT (BEAKER) (test gdou=670) 4.13 M/ L 3.93-5.22 HEMOGLOBIN (BEAKER) (test nmff=212) 12.0 GM/DL 11.2-15.7 HEMATOCRIT (BEAKER) (test ancc=896) 36.6 % 34.1-44.9 MEAN CORPUSCULAR VOLUME (BEAKER) (test ggxl=284) 88.6 fL 79.4-94.8 MEAN CORPUSCULAR HEMOGLOBIN (BEAKER) (test 29.1 pg 25.6-32.2 nycq=748) MEAN CORPUSCULAR HEMOGLOBIN CONC (BEAKER) (test 32.8 GM/DL 32.2-35.5 pffx=848) RED CELL DISTRIBUTION WIDTH (BEAKER) (test 13.8 % 11.7-14.4 dyhb=503) PLATELET COUNT (BEAKER) (test ezfg=363) 225 K/CU MM 150-450 MEAN PLATELET VOLUME (BEAKER) (test braf=352) 11.0 fL 9.4-12.3 NUCLEATED RED BLOOD CELLS (BEAKER) (test 0 /100 WBC 0-0 vkwe=832) NEUTROPHILS RELATIVE PERCENT (BEAKER) (test 65 % qkay=024) LYMPHOCYTES RELATIVE PERCENT (BEAKER) (test 27 % novj=658) MONOCYTES RELATIVE PERCENT (BEAKER) (test 7 % shgl=915) EOSINOPHILS RELATIVE PERCENT (BEAKER) (test 1 % oofq=268) BASOPHILS RELATIVE PERCENT (BEAKER) (test 0 % xbpu=258) NEUTROPHILS ABSOLUTE COUNT (BEAKER) (test 4.51 K/ L 1.56-6.13 zpqt=590) LYMPHOCYTES ABSOLUTE COUNT (BEAKER) (test 1.91 K/ L 1.18-3.74 hrcw=844) MONOCYTES ABSOLUTE COUNT (BEAKER) (test 0.45 K/ L 0.24-0.36 lzkz=637) EOSINOPHILS ABSOLUTE COUNT (BEAKER) (test 0.06 K/ L 0.04-0.36 xcbh=377) BASOPHILS ABSOLUTE COUNT (BEAKER) (test 0.02 K/ L 0.01-0.08 txkc=101) IMMATURE GRANULOCYTES-RELATIVE PERCENT (BEAKER) 0 % 0-1 (test ceoh=5746)
[2018-05-14 17:17] LABS: Urine Bacteria <20 /HPF (<20)
[2018-05-14 17:18] LABS: Urine Culture Reflex Order NOT NEEDED
[2018-05-14 17:19] LABS: Urine Blood 2+ (NEG); Urine Glucose NEGATIVE (NEG); Urine Protein NEGATIVE (NEG); Urine Specific Gravity 1.025 (1.005-1.030)
[2018-05-14] MEDS ORDERED: KETOROLAC 30 MG/ML INJ ONE (17:22)
--- NOTE | 2018-05-14 17:58 | RAD REPORT ---
EXAM DESCRIPTION: CT - Stone Protocol - 05/14/2018 5:36 pm CLINICAL HISTORY: Back pain, flank pain COMPARISON: July 2017 CT imaging TECHNIQUE: Axial 5 mm thick images were obtained without oral or IV contrast. The howig-de-phug span s the entirety of the system including uppermost abdomen and lung bases. All CT scans are performed using dose optimization technique as appropriate and may include automated exposure control or mA/KV adjustment according to patient size. FINDINGS: No hydronephrosis is present and no obstructing ureteral calculi. No suspicious renal mass es. Isodense masses and pyelonephritis are not excluded on a stone protocol CT scan. Again noted is a bsence of the left kidney. There is a small remnant of tissue in the left renal fossa. This was non f unctioning tissue on the prior CT study. Contracted urinary bladder shows no suspicious finding. Uter us and ovaries show no suspicious findings. Imaged portions of the liver, spleen and pancreas show no suspicious findings on non-contrast imaging . Gallbladder is contracted limiting assessment. No biliary tree dilatation. No significant adrenal f inding. No suspicious bowel findings. No appendicitis or other acute GI process identified. Patient has a min imal diverticulosis pattern. No hernia, mass or bulky lymphadenopathy noted. No free air, free fluid or inflammatory stranding. No significant bony abnormality. IMPRESSION: No hydronephrosis, obstructing calculus or other acute finding. Again noted is absenc e of the left kidney. Isodense masses and pyelonephritis are not excluded on stone protocol technique. No acute GI or WIRE THREADER process.
--- NOTE | 2018-05-14 18:20 | ER ---
Nurse's Notes [facility] Name: Anjelica Grover Age: 47 yrs Sex: Female : 1970 Arrival Date: 05/14/2018 Time: 13:29 Bed 28 Private MD: Eleuterio Peterson Diagnosis: Low back pain Presentation: 05/14 13:33 Presenting complaint: Patient states: Low back pain, denies injury. Pt reports a ss history of similar back pain. Transition of care: patient was not received from another setting of care. Onset of symptoms is unknown. Risk Assessment: Do you want to hurt yourself or someone else? Patient reports no desire to harm self or others. Initial Sepsis Screen: Does the patient meet any 2 criteria? No. Patient's initial sepsis screen is negative. Does the patient have a suspected source of infection? No. Patient's initial sepsis screen is negative. Care prior to arrival: None. 13:33 Method Of Arrival: Ambulatory ss 13:33 Acuity: CHAN 4 ss Historical: - Allergies: 13:35 Codeine; ss - PMHx: 13:35 Hypertension; CVA; ss - PSHx: 13:35 c section; ss - Immunization history:: Adult Immunizations unknown. - Social history:: Smoking status: Patient/guardian denies using tobacco. - Ebola Screening: : Patient denies exposure to infectious person Patient denies travel to an Ebola-affected area in the 21 days before illness onset. Screenin:01 Abuse screen: Denies threats or abuse. Denies injuries from another. Nutritional aj screening: No deficits noted. Tuberculosis screening: No symptoms or risk factors identified. Fall Risk None identified. Assessment: 17:01 General: Appears in no apparent distress. comfortable, Behavior is calm, cooperative, aj appropriate for age. Pain: Complains of pain in low back area. Neuro: Level of Consciousness is awake, alert, obeys commands, Oriented to person, place, time, situation, Appropriate for age. Respiratory: Airway is patent Respiratory effort is even, unlabored, Respiratory pattern is regular, symmetrical. : Reports pain in lower back. Derm: Skin is intact, is healthy with good turgor, Skin is pink, warm \T\ dry. normal. 18:31 Reassessment: Patient appears in no apparent distress at this time. No changes from aj previously documented assessment. Patient and/or family updated on plan of care and expected duration. Pain level reassessed. Patient is alert, oriented x 3, equal unlabored respirations, skin warm/dry/pink. Patient ambulated to lobby with steady gait. Vital Signs: 13:32 BP 127 / 81; Pulse 87; Resp 16; Temp 97.8(TE); Pulse Ox 100% on R/A; Weight 63.5 kg; Height 5 ft. 3 in. (160.02 cm); Pain 10/10; 18:10 BP 131 / 76; Pulse 83; Resp 17; Pulse Ox 99% on R/A; aj 13:32 Body Mass Index 24.80 (63.50 kg, 160.02 cm) ED Course: 13:29 Patient arrived in ED. as 13:30 Eleuterio Peterson MD is Private Physician. as 13:32 Arm band placed on right wrist. 13:34 Triage completed. 15:52 Reginaldo Miller MD is Attending Physician. 15:59 Meryl Ballard, RN is Primary Nurse. aj 16:33 Radiology exam delayed due to test not completed at this time. vt 17:01 Patient has correct armband on for positive identification. aj 17:37 CT Stone Protocol In Process Unspecified. EDOK 18:31 No provider procedures requiring assistance completed. Patient did not have IV access aj during this emergency room visit. Administered Medications: 17:16 Drug: TORadol 30 mg Route: IM; Site: left deltoid; aj Outcome: 18:20 Discharge ordered by . 18:31 Discharged to home ambulatory. aj 18:31 Condition: good 18:31 Discharge instructions given to patient, Instructed on discharge instructions, follow up and referral plans. medication usage, Demonstrated understanding of instructions, follow-up care, medications, Prescriptions given X 1. 18:34 Patient left the ED. Signatures: Dispatcher [employer] EDMS Meryl Ballard, RN Yamila Cee Shelby, RN RN ss Jordan, Nathan nj Starr, Gregory, MD MD
--- NOTE | 2018-05-14 18:20 | EDPHYS ---
Physician Documentation [facility] Name: Anjelica Grover Age: 47 yrs Sex: Female : 1970 Arrival Date: 05/14/2018 Time: 13:29 Bed 28 Private MD: Eleuterio Peterson ED Physician Angela Reginaldo HPI: 05/14 18:32 This 47 yrs old Female presents to ER via Ambulatory with complaints of Low gs Back Pain. 18:32 The patient presents with pain that is acute. The symptoms are located in the low back, gs left low back. The pain does not radiate. Onset: The symptoms/episode began/occurred 2 day(s) ago, and became worse and became persistent. Modifying factors: the patient symptoms are aggravated by bending. Associated signs and symptoms: Pertinent negatives: constipation, incontinence, numbness, tingling, urinary retention. Severity of symptoms: At their worst the symptoms were moderate, in the emergency department the symptoms are unchanged. The patient has not experienced similar symptoms in the past. Historical: - Allergies: 13:35 Codeine; ss - PMHx: 13:35 Hypertension; CVA; ss - PSHx: 13:35 c section; ss - Immunization history:: Adult Immunizations unknown. - Social history:: Smoking status: Patient/guardian denies using tobacco. - Ebola Screening: : Patient denies exposure to infectious person Patient denies travel to an Ebola-affected area in the 21 days before illness onset. ROS: 18:32 All other systems are negative. gs Exam: 18:32 Head/Face: Normocephalic, atraumatic. Eyes: Pupils equal round and reactive to light, gs extra-ocular motions intact. Lids and lashes normal. Conjunctiva and sclera are non-icteric and not injected. Cornea within normal limits. Periorbital areas with no swelling, redness, or edema. ENT: Nares patent. No nasal discharge, no septal abnormalities noted. Tympanic membranes are normal and external auditory canals are clear. Oropharynx with no redness, swelling, or masses, exudates, or evidence of obstruction, uvula midline. Mucous membranes moist. Neck: Trachea midline, no thyromegaly or masses palpated, and no cervical lymphadenopathy. Supple, full range of motion without nuchal rigidity, or vertebral point tenderness. No Meningismus. Chest/axilla: Normal chest wall appearance and motion. Nontender with no deformity. No lesions are appreciated. Cardiovascular: Regular rate and rhythm with a normal S1 and S2. No gallops, murmurs, or rubs. Normal PMI, no JVD. No pulse deficits. Respiratory: Lungs have equal breath sounds bilaterally, clear to auscultation and percussion. No rales, rhonchi or wheezes noted. No increased work of breathing, no retractions or nasal flaring. Abdomen/GI: Soft, non-tender, with normal bowel sounds. No distension or tympany. No guarding or rebound. No evidence of tenderness throughout. Skin: Warm, dry with normal turgor. Normal color with no rashes, no lesions, and no evidence of cellulitis. MS/ Extremity: Pulses equal, no cyanosis. Neurovascular intact. Full, normal range of motion. Neuro: Awake and alert, GCS 15, oriented to person, place, time, and situation. Cranial nerves II-XII grossly intact. Motor strength 5/5 in all extremities. Sensory grossly intact. Cerebellar exam normal. Normal gait. 18:32 Constitutional: The patient appears alert, awake. 18:32 Back: CVA tenderness, that is moderate, is noted on the left. Vital Signs: 13:32 BP 127 / 81; Pulse 87; Resp 16; Temp 97.8(TE); Pulse Ox 100% on R/A; Weight 63.5 kg; ss Height 5 ft. 3 in. (160.02 cm); Pain 10/10; 18:10 BP 131 / 76; Pulse 83; Resp 17; Pulse Ox 99% on R/A; aj 13:32 Body Mass Index 24.80 (63.50 kg, 160.02 cm) MDM: 16:17 Patient medically screened. 18:32 Differential diagnosis: strain, sciatica, UTI, stone. Data reviewed: vital signs, nurses notes. Response to treatment: the patient's symptoms have markedly improved after treatment, and as a result, I will discharge patient. 05/14 16:19 Order name: Urine Microscopic Only; Complete Time: 17:57 gs 05/14 17:05 Order name: Urine Dipstick--Ancillary (enter results); Complete Time: 17:57 bd 05/14 16:19 Order name: Urine Test (obtain specimen); Complete Time: 17:09 05/14 16:19 Order name: CT Stone Protocol; Complete Time: 18:19 gs 05/14 17:05 Order name: Urine --Ancillary (enter results); Complete Time: 17:57 bd 05/14 16:19 Order name: Urine Dipstick-Ancillary (obtain specimen); Complete Time: 17:09 gs Administered Medications: 17:16 Drug: TORadol 30 mg Route: IM; Site: left deltoid; aj Disposition: 05/14/18 18:20 Discharged to Home. Impression: Low back pain. - Condition is Stable. - Discharge Instructions: Chronic Back Pain. - Prescriptions for Naprosyn 500 mg Oral Tablet - take 1 tablet by ORAL route 2 times per day As needed take with food; 30 tablet. - Medication Reconciliation Form, Thank You Letter, Antibiotic Education, Prescription Opioid Use form. - Follow up: Private Physician; When: 2 - 3 days; Reason: Re-evaluation by your physician. Signatures: Dispatcher [employer] EDMeryl Day RN RN aj Smirch, Shelby, RN RN ss Starr, Gregory, MD MD Corrections: (The following items were deleted from the chart) 18:34 18:20 05/14/2018 18:20 Discharged to Home. Impression: Low back pain. Condition is aj Stable. Forms are Medication Reconciliation Form, Thank You Letter, Antibiotic Education, Prescription Opioid Use. Follow up: Private Physician; When: 2 - 3 days; Reason: Re-evaluation by your physician. gs
[2018-05-14 19:53] VITALS: TEMP 97.8
[2018-05-14 19:54] VITALS: BP 131/76; O2SAT 99
== END 2018-05-14 18:34 | disposition home or self-care (01) ==
LOC: ER 13:26
DX: M54.5 Low back pain (principal); I10 Essential (primary) hypertension; Z88.5 Allergy status to narcotic agent
CPT/HCPCS: 74176; 76377; 81003; 81015; 81025; 96372; 99283

== ENCOUNTER 2018-06-27 11:57 | Emergency (ER) | payer SELFPAY ==
--- OUTSIDE RECORDS SUMMARY | 2018-06-27 12:00 | XMS REPORT | Clinical Summary ---
:1970 Author Organization [facility] Address [address] [place] [address] Care Team Providers Name Role Phone Sharpfarhana [...] Team Description 09/12/2017 - Hospital Intensive Care [facility] Pillai, Ischemic stroke (HCC ); 09/15/2017 Encounter Horacio Hyperlipidemia, unspecified hyperlipidemia type; MD Matt SVT (supraventricular tachycardia) (HCC); Tramaine Murphy Urine culture positive; MD Robert Cerebellar stroke, acute (HCC); Vin Denton Balance problem; MD Anuj Cryptogenic stroke (HCC) after 06/26/2017 Social History Tobacco Use Types Packs/Day Years [...] Taken Blood Pressure 118/70 09/15/2017 2:00 PM HEALTH SCIENCE WRITER Pulse 94 09/15/2017 2:00 PM HEALTH SCIENCE WRITER Temperature 36.6 C (97.8 F) 09/15/2017 12:00 PM HEALTH SCIENCE WRITER Respiratory Rate 20 09/15/2017 2:00 PM HEALTH SCIENCE WRITER Oxygen Saturation 100% 09/15/2017 2:00 PM HEALTH SCIENCE WRITER Inhaled Oxygen Concentration - - Weight 62.3 kg (137 lb 5.6 oz) 09/12/2017 11:00 PM HEALTH SCIENCE WRITER Height 157.5 cm (5' 2") 09/12/2017 11:00 PM HEALTH SCIENCE WRITER Body Mass Index 25.12 09/12/2017 11:00 PM HEALTH SCIENCE WRITER Plan of Treatment Not on file Procedures Procedure Name Priority Date/Time Associated Comments Diagnosis REPORT OF PROCEDURE - 09/18/2017 12:51 ENDOSCOPY SCAN PM HEALTH SCIENCE WRITER RHYTHM STRIP - SCAN 09/18/2017 12:50 PM HEALTH SCIENCE WRITER [place] TITER AND PATTERN Routine 09/15/2017 9:47 Results for this AM HEALTH SCIENCE WRITER procedure are in the results section. DOUBLE-STRANDED DNA Routine 09/15/2017 9:47 Results for this (DSDNA) ANTIBODY AM HEALTH SCIENCE WRITER procedure are in the results section. ANTI-NUCLEAR ANTIBODY Routine 09/15/2017 9:47 Results for this ([place]) AM HEALTH SCIENCE WRITER procedure are in the results section. CBC W/PLT COUNT & AUTO Routine 09/15/2017 7:21 Results for this DIFFERENTIAL AM HEALTH SCIENCE WRITER procedure are in the results section. BASIC METABOLIC PANEL Routine 09/15/2017 7:21 Results for this (7) AM HEALTH SCIENCE WRITER procedure are in the results section. CBC W/PLT COUNT & AUTO Routine 09/15/2017 7:21 Results for this DIFFERENTIAL AM HEALTH SCIENCE WRITER procedure are in the results section. ECG 12-LEAD STAT 09/14/2017 4:37 Results for this PM HEALTH SCIENCE WRITER procedure are in the results section. ECHOCARDIOGRAM REPORT 09/14/2017 11:50 - SCAN AM HEALTH SCIENCE WRITER CBC W/PLT COUNT & AUTO Routine 09/14/2017 3:49 Results for this DIFFERENTIAL AM HEALTH SCIENCE WRITER procedure are in the results section. HEPATIC FUNCTION PANEL Routine 09/14/2017 3:49 Results for this AM HEALTH SCIENCE WRITER procedure are in the results section. BASIC METABOLIC PANEL Routine 09/14/2017 3:49 Results for this (7) AM HEALTH SCIENCE WRITER procedure are in the results section. CBC W/PLT COUNT & AUTO Routine 09/14/2017 3:49 Results for this DIFFERENTIAL AM HEALTH SCIENCE WRITER procedure are in the results section. URINALYSIS W/ Routine 09/13/2017 9:08 Results for this MICROSCOPIC PM HEALTH SCIENCE WRITER procedure are in the results section. URINE CULTURE Routine 09/13/2017 9:08 Results for this PM HEALTH SCIENCE WRITER procedure are in the results section. MR MRA HEAD WITHOUT Routine 09/13/2017 6:26 Results for this CONTRAST PM HEALTH SCIENCE WRITER procedure are in the results section. MR MRA NECK WITHOUT IV Routine 09/13/2017 6:07 Results for this CONTRAST PM HEALTH SCIENCE WRITER procedure are in the results section. MR BRAIN WITHOUT IV Routine 09/13/2017 5:58 Results for this CONTRAST PM HEALTH SCIENCE WRITER procedure are in the results section. 2D ECHO W/ DOPPLER Routine 09/13/2017 1:50 Results for this (CW/PW/COLOR) PM HEALTH SCIENCE WRITER procedure are in the results section. URINE CULTURE Routine 09/13/2017 1:12 Results for this PM HEALTH SCIENCE WRITER procedure are in the results section. LUPUS ANTICOAGULANT AP Routine 09/13/2017 10:45 Results for this SCREEN WITH REFLEX TO AM HEALTH SCIENCE WRITER procedure are in CONFIRMATORY the results section. BETA-2 GLYCOPROTEIN Routine 09/13/2017 10:45 Results for this ANTIBODIES AM HEALTH SCIENCE WRITER procedure are in the results section. HOMOCYSTEINE Routine 09/13/2017 10:45 Results for this AM HEALTH SCIENCE WRITER procedure are in the results section. CARDIOLIPIN Routine 09/13/2017 10:44 Results for this ANTIBODIES, IGG AND AM HEALTH SCIENCE WRITER procedure are in IGM the results section. ECG 12-LEAD Routine 09/13/2017 9:25 Results for this AM HEALTH SCIENCE WRITER procedure are in the results section. TROPONIN I Routine 09/13/2017 8:46 Results for this AM HEALTH SCIENCE WRITER procedure are in the results section. URINALYSIS W/ Routine 09/13/2017 5:23 Results for this MICROSCOPIC AM HEALTH SCIENCE WRITER procedure are in the results section. CBC W/PLT COUNT & AUTO Routine 09/13/2017 3:56 Results for this DIFFERENTIAL AM HEALTH SCIENCE WRITER procedure are in the results section. LIPID PANEL Routine 09/13/2017 3:56 Results for this AM HEALTH SCIENCE WRITER procedure are in the results section. BASIC METABOLIC PANEL Routine 09/13/2017 3:56 Results for this (7) AM HEALTH SCIENCE WRITER procedure are in the results section. CBC W/PLT COUNT & AUTO Routine 09/13/2017 3:56 Results for this DIFFERENTIAL AM HEALTH SCIENCE WRITER procedure are in the results section. CBC W/PLT COUNT & AUTO Routine 09/13/2017 12:43 Results for this DIFFERENTIAL AM HEALTH SCIENCE WRITER procedure are in the results section. VITAMIN B12 AND FOLATE Routine 09/13/2017 12:43 Results for this AM HEALTH SCIENCE WRITER procedure are in the results section. TSH/FREE T4 IF Routine 09/13/2017 12:43 Results for this INDICATED AM HEALTH SCIENCE WRITER procedure are in the results section. HEMOGLOBIN A1C Routine 09/13/2017 12:43 Results for this AM HEALTH SCIENCE WRITER procedure are in the results section. TROPONIN I Routine 09/13/2017 12:43 Results for this AM HEALTH SCIENCE WRITER procedure are in the results section. CBC W/PLT COUNT & AUTO Routine 09/13/2017 12:43 Results for this DIFFERENTIAL AM HEALTH SCIENCE WRITER procedure are in the results section. BASIC METABOLIC PANEL Routine 09/13/2017 12:43 Results for this (7) AM HEALTH SCIENCE WRITER procedure are in the results section. after 06/26/2017 Results EKG-SCANNED (09/18/2017 12:51 PM HEALTH SCIENCE WRITER) Narrative Performed At RHYTHM STRIP - SCAN (09/18/2017 12:50 PM HEALTH SCIENCE WRITER) Narrative Performed At [place] Titer & Pattern (09/15/2017 9:47 AM HEALTH SCIENCE WRITER) [place] Titer 1:[address] [facility] [place] Pattern Homogeneous [facility] Specimen Blood - Arm, Right Performing Organization Address [facility]/Zipcode Phone Number [address] [address] [phone] VAN Double-Stranded DNA (dsDNA) Antibody (09/15/2017 9:47 AM HEALTH SCIENCE WRITER) ds DNA Ab Negative [facility] Specimen Blood - Arm, Right Performing Organization Address [facility] Cent[facility]ode Phone Number [address] [address] [phone] VAN Anti-Nuclear Antibody ([place]) (09/15/2017 9:47 AM HEALTH SCIENCE WRITER) [place] Positive (A) Negative [facility] Specimen Blood - Arm, Right Performing Organization Address [facility] Cent[facility]osd Phone Number [address] [address] VAN CBC with platelet count + automated diff (09/15/2017 7:21 AM HEALTH SCIENCE WRITER)Only the most recent of4 resultswithin the time period is included. WBC 4.9 3.5 - 10.5 K/L [facility] RBC 4.08 3.93 - 5.22 M/L [facility] Hemoglobin 11.9 11.2 - 15.7 GM/DL [facility] Hematocrit 36.6 34.1 - 44.9 % [facility] MCV 89.7 79.4 - 94.[address] [facility] MCH 29.2 25.6 - 32.[address] [facility] MCHC 32.5 32.2 - 35.5 GM/DL [facility] RDW 13.7 11.7 - 14.4 % [facility] Platelets 221 150 - 450 K/CU MM [facility] MPV 11.0 9.4 - 12.[address] [facility] nRBC 0 0 - 0 /[address] [facility] % Neutros 47 % [facility] % Lymphs 42 % [facility] % Monos 8 % [facility] % Eos 2 % [facility] % Baso 0 % [facility] # Neutros 2.32 1.56 - 6.13 K/L [facility] # Lymphs 2.04 1.18 - 3.74 K/L [facility] # Monos 0.41 (H) 0.24 - 0.36 K/L [facility] # Eos 0.10 0.04 - 0.36 K/L [facility] # Baso 0.02 0.01 - 0.08 K/L [facility] Immature Granulocytes-Relative 0 0 - 1 % [facility] Specimen Blood Performing Organization Address City/State/Zipcode Phone Number [facility] [address] [place] [address] [phone] CENTER Basic Metabolic Panel (09/15/2017 7:21 AM HEALTH SCIENCE WRITER)Only the most recent of4 resultswithin the time period is included. Sodium 138 136 - 145 meq/L [facility] Potassium 3.9 3.5 - 5.1 meq/L [facility] Chloride 108 (H) 98 - 107 meq/L [facility] CO2 22 22 - 29 meq/L [facility] BUN 10 7 - 21 mg/dL [facility] Creatinine 0.71 0.57 - 1.25 mg/dL [facility] Glucose 84 70 - 105 mg/dL [facility] Calcium 8.5 8.4 - 10.2 mg/dL [facility] EGFR Comment: INSUFFICIENT CLINICAL mL/min/1.73 sq m [facility] DATA TO CALCULATE ESTIMATED [facility]ENTER GFR. Specimen Blood Performing Organization Address City/State/Zipcode Phone Number [facility] [address] [place] [address] CENTER ECG 12 lead (09/14/2017 4:37 PM HEALTH SCIENCE WRITER)Only the most recent of2 resultswithin the time period is included. Narrative Performed At Ventricular Rate 89 BPM [facility] Atrial Rate 89 BPM P-R Interval 120 ms QRS Duration 82 ms Q-T Interval 388 ms QTC Calculation(Bazett) 472 ms P Disputanta 15 degrees R Disput[place] 30 degrees T [place] 21 degrees Normal sinus rhythm Normal ECG When compared with ECG of 13-SEP-2017 09:25, T wave inversion no longer evident in Anterior leads Confirmed by Fide STEINBERG, MAURICIO ([id number]) on 09/17/2017 8:43:47 AM Procedure Note Interface, External Ris In - 09/17/2017 8:44 AM HEALTH SCIENCE WRITER Ventricular Rate 89 BPM Atrial Rate 89 BPM P-R Interval 120 ms QRS Duration 82 ms Q-T Interval 388 ms QTC Calculation(Bazett) 472 ms P Dis[place] 15 degrees R [place] 30 degrees T [place] 21 degrees Normal sinus rhythm Normal ECG When compared with ECG of 13-SEP-2017 09:25, T wave inversion no longer evident in Anterior leads Confirmed by Fide STEINBERG BASANT ([id number]) on 09/17/2017 8:43:47 AM Performing Organization Address City/State/Zipcode Phone Number [facility] ECHOCARDIOGRAM REPORT - SCAN (09/14/2017 11:50 AM HEALTH SCIENCE WRITER) Narrative Performed At Hepatic function panel (09/14/2017 3:49 AM HEALTH SCIENCE WRITER) Protein, Total 6.1 6.0 - 8.3 gm/dL [facility] Albumin 3.1 (L) 3.5 - 5.0 g/dL [facility] Total Bilirubin 0.4 0.2 - 1.2 mg/dL [facility] Bilirubin, Direct 0.2 0.1 - 0.5 mg/dL [facility] Alkaline Phosphatase 71 40 - 150 U/L [facility] AST 13 5 - 34 U/L [facility] ALT 11 6 - 55 U/L [facility] Specimen Blood Performing Organization Address City/State/Zipcode Phone Number [facility] [address] [place] [address] [phone] CENTER Urinalysis w/Microscopic (09/13/2017 9:08 PM HEALTH SCIENCE WRITER)Only the most recent of2 resultswithin the time period is included. Color, UA Light Yellow [facility] Clarity, UA Hazy [facility] Specific Oakes, UA 1.009 1.001 - 1.[address] [facility] pH, UA 6.0 5.0 - 8.[address] [facility] Protein, UA Negative Negative [facility] Glucose, UA Negative Negative [facility] Ketones, UA Negative Negative [facility] Bilirubin, UA Negative Negative [facility] Blood, UA Small (A) Negative [facility] Nitrite, UA Negative Negative [facility] Leukocytes, UA Large (A) Negative [facility] Urobilinogen, UA 0.2 0.2 - 1.0 mg/dL [facility] RBC, UA <1 /HPF [facility] WBC, UA 16 /HPF [facility] Squam Epithel, UA 3 /HPF [facility] Specimen Source Urine, Voided [facility] Specimen Urine - Urine, Voided Performing Organization Address City/State/Zipcode Phone Number [facility] [address] [place] [address] [phone] VAN Urine culture (09/13/2017 9:08 PM HEALTH SCIENCE WRITER)Only the most recent of2 resultswithin the time period is included. Result >100,000 col/mL Same organism has been isolated from cultures(s) of the same body site within 3 days. Repeat identification and susceptibility testing performed only after consultation with the clinical microbiology laboratory. (A) [facility] Comment: MEDICAL CENTER Refer to previous culture of Klebsiella pneumoniae Specimen Urine - Urine, Voided Performing Organization Address [facility] Centercode Phone Number [address] [address] VAN MR MRA head without contrast (09/13/2017 6:26 PM HEALTH SCIENCE WRITER) Narrative Performed At FINAL REPORT [facility] MRA Head CLINICAL HISTORY: Stroke s/p tPA TECHNIQUE: MRA of the head utilizing 3-D bytq-sy-rlrkmj technique, with 3-D reconstructions. COMPARISON: None FINDINGS: There is no evidence for a gambell of [place] proximal branch vessel occlusion. There is a 2 mm protuberance of the left posterior communicating artery segment for which an infundibulum versus aneurysm cannot be distinguished. IMPRESSION: No evidence for a major gambell of [place] proximal branch vessel occlusion. 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 MRA Neck CLINICAL HISTORY: Stroke s/p tPA TECHNIQUE: MRA of the neck utilizing 2-D and 3-D dxwa-yy-aaovge technique, with 3-D reconstructions. COMPARISON: None FINDINGS: The carotid arteries in the neck are patent including their bifurcations. There is antegrade flow in the vertebral arteries in the neck. There is left vertebral dominance. IMPRESSION: No evidence of hemodynamically significant stenosis in the cervical carotid or vertebral arteries by NASCET criteria. Signed: Ike Rentreia MD Report Verified Date/Time:09/13/2017 19:51:37 Reading Location: [facility] Radiology Reading Room Procedure Note Interface, External Ris In - 09/13/2017 7:53 PM HEALTH SCIENCE WRITER FINAL REPORT MRA Head CLINICAL HISTORY: Stroke s/p tPA TECHNIQUE: MRA of the head utilizing 3-D ssso-ga-icgdsm technique, with 3-D reconstructions. COMPARISON: None FINDINGS: There is no evidence for a gambell of [place] proximal branch vessel occlusion. There is a 2 mm protuberance of the left posterior communicating artery segment for which an infundibulum versus aneurysm cannot be distinguished. IMPRESSION: No evidence for a major gambell of [place] proximal branch vessel occlusion. 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 MRA Neck CLINICAL HISTORY: Stroke s/p tPA TECHNIQUE: MRA of the neck utilizing 2-D and 3-D ooce-hw-lpiemw technique, with 3-D reconstructions. COMPARISON: None FINDINGS: The carotid arteries in the neck are patent including their bifurcations. There is antegrade flow in the vertebral arteries in the neck. There is left vertebral dominance. IMPRESSION: No evidence of hemodynamically significant stenosis in the cervical carotid or vertebral arteries by NASCET criteria. Signed: Ike Renteria MD Report Verified Date/Time: 09/13/2017 19:51:37 Reading Location: [facility] Radiology Reading Room Performing Organization Address City/State/Zipcode Phone Number Dole Tian MR MRA neck without contrast (09/13/2017 6:07 PM HEALTH SCIENCE WRITER) Narrative Performed At FINAL REPORT [facility] MRA Head CLINICAL HISTORY: Stroke s/p tPA TECHNIQUE: MRA of the head utilizing 3-D trho-dq-fzhqus technique, with 3-D reconstructions. COMPARISON: None FINDINGS: There is no evidence for a gambell of [place] proximal branch vessel occlusion. There is a 2 mm protuberance of the left posterior communicating artery segment for which an infundibulum versus aneurysm cannot be distinguished. IMPRESSION: No evidence for a major gambell of [place] proximal branch vessel occlusion. 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 MRA Neck CLINICAL HISTORY: Stroke s/p tPA TECHNIQUE: MRA of the neck utilizing 2-D and 3-D cfop-du-vulfgp technique, with 3-D reconstructions. COMPARISON: None FINDINGS: The carotid arteries in the neck are patent including their bifurcations. There is antegrade flow in the vertebral arteries in the neck. There is left vertebral dominance. IMPRESSION: No evidence of hemodynamically significant stenosis in the cervical carotid or vertebral arteries by NASCET criteria. Signed: Ike Renteria MD Report Verified Date/Time:09/13/2017 19:51:37 Reading Location: [facility] Radiology Reading Room Procedure Note Interface, External Ris In - 09/13/2017 7:53 PM HEALTH SCIENCE WRITER FINAL REPORT MRA Head CLINICAL HISTORY: Stroke s/p tPA TECHNIQUE: MRA of the head utilizing 3-D hjmh-th-amtegb technique, with 3-D reconstructions. COMPARISON: None FINDINGS: There is no evidence for a gambell of [place] proximal branch vessel occlusion. There is a 2 mm protuberance of the left posterior communicating artery segment for which an infundibulum versus aneurysm cannot be distinguished. IMPRESSION: No evidence for a major gambell of [place] proximal branch vessel occlusion. 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 MRA Neck CLINICAL HISTORY: Stroke s/p tPA TECHNIQUE: MRA of the neck utilizing 2-D and 3-D kohs-oe-smlpug technique, with 3-D reconstructions. COMPARISON: None FINDINGS: The carotid arteries in the neck are patent including their bifurcations. There is antegrade flow in the vertebral arteries in the neck. There is left vertebral dominance. IMPRESSION: No evidence of hemodynamically significant stenosis in the cervical carotid or vertebral arteries by NASCET criteria. Signed: Ike Renteria MD Report Verified Date/Time: 09/13/2017 19:51:37 Reading Location: [facility] Radiology Reading Room Performing Organization Address City/State/Zipcode Phone Number Dole Tian MR brain without IV contrast (09/13/2017 5:58 PM HEALTH SCIENCE WRITER) Narrative Performed At FINAL REPORT [facility] MRI Brain without contrast Clinical History: Stroke [...] MD Report Verified Date/Time:09/13/2017 18:13:57 Reading Location: [facility] [place] Reading Room Procedure Note Interface, External Ris In - 09/13/2017 6:16 PM HEALTH SCIENCE WRITER FINAL REPORT MRI Brain without contrast Clinical [...] Report Verified Date/Time: 09/13/2017 18:13:57 Reading Location: [facility] Radiology Reading Room Performing Organization Address City/State/Zipcode Phone Number [facility] 2D Echo W/Doppler(CW/PW/Color) with saline (09/13/2017 1:50 PM HEALTH SCIENCE WRITER) Ejection Fraction [facility] Narrative Performed At Transthoracic Echocardiography Report (TTE) [facility] Demographics Patient Name ANJELICA PEARSON Date of Study 09/13/2017 [id number] Visit Number [id number] Room Number 7401 Number Date of Birth1970Referring Physician HORACIO TSE Age47 year(s)Public Health Representative Karen Teresa, [facility] AnalystAlex Daniela InterpretingJoshelley Lew MD Physician Procedure [...] External Ris In - 09/14/2017 11:05 AM HEALTH SCIENCE WRITER Transthoracic Echocardiography Report (TTE) Demographics Patient Name ANJELICA PEARSON Date of Study 09/13/2017 Gender Female Visit Number [id number] Race Room Number 7401 Number Date of 1970 Referring Physician HORACIO TSE Age 47 year(s) Public Health Representative Karen Teresa [facility] Addictions Counselor Assistant En Suarez Interpreting Robert Lew MD Physician [...] LVOT VTI: 22.61 cm Performing Organization Address City/State/[facility] Cent[facility]ode Phone Number [facility]ART[facility] Lupus Anticoagulant Screen with Reflex To Confirmatory (09/13/2017 10:45 AM HEALTH SCIENCE WRITER) DRVV Screen Ratio 0.71 <1.[address] [facility] Interpretations Negative screen for Lupus [facility] Anticoagulant [facility] Protime 13.5 11.7 - 14.[address] [facility] INR 1.0 <=5.[address] [facility] PTT 23.5 22.5 - 36.[address] [facility] PTT-LA 26.7 (L) 32.0 - 41.[address] [facility] Pathologist: Irvin Henderson M.D. [facility] (electonic signature) [facility] Specimen Blood - Line, Venous Performing Organization Address City/[facility]/Zipcode Phone Number [address] [address] [phone] CENTER Beta-2 glycoprotein antibodies (09/13/2017 10:45 AM HEALTH SCIENCE WRITER) B2 Glcoprotein Ab Profile Refer to individual [facility] B2-Glycoprotein IgG, IgM INCORPORATED and IgA results. Specimen Blood - Line, Venous Performing Organization Address City/State/Zipcode Phone Number [place] [address] INCORPORATED [address] [facility] Homocysteine (09/13/2017 10:45 AM HEALTH SCIENCE WRITER) Homocysteine 6.7 5.1 - 15.4 umol/L [facility] Specimen Blood - Line, Venous Performing Organization Address City/State/Zipcode Phone Number [address] [address] CENTER Cardiolipin Antibodies, IgG and IgM (09/13/2017 10:44 AM HEALTH SCIENCE WRITER) Anticardiolipin IgG <1.[address] [facility] Anticardiolipin IgM 1.[address] [facility] Specimen Blood - Line, Venous Narrative Performed At Anticardiolipin IgG Result Interpretation: [facility] NEG:<20 GPL;U/ml POS:>/=20 GPL;U/ml Anticardiolipin IgM Result Interpretation: NEG:<20 MPL;U/ml POS:>/=20 MPL;U/ml Performing Organization Address [facility] Cent[facility]osd Phone Number [address] [phone] VAN Troponin I (09/13/2017 8:46 AM HEALTH SCIENCE WRITER)Only the most recent of2 resultswithin the time period is included. Troponin I <0.01 0.00 - 0.03 ng/mL [facility] Specimen Blood - Line, Venous Narrative Performed At [facility] Troponin I (TnI) levels must be interpreted [...] disease, and persistent tachyarrhythmia. Performing Organization Address [facility] Phone Number [address] [address] VAN Fasting lipid panel (09/13/2017 3:56 AM HEALTH SCIENCE WRITER) Triglycerides 93Comment: Specimen slightly mg/dL [facility] Cholesterol 178Comment: Specimen slightly mg/dL [facility] [employer] HDL 49 mg/dL [facility] LDL Calculated 110 mg/dL [facility] Specimen Blood - Line, Venous Narrative Performed At [facility] Triglyceride Reference Range: Low Risk <150 Tnetzcfiwu772-819 High Risk 200-499 Very High Risk>=500 Cholesterol Reference Range: Low Risk <200 Tmuryziath451-762 High Risk>240 HDL Cholesterol Reference Range: Low Risk >=60 High Risk <40 LDL Cholesterol Reference Range: Optimal<100 Near Ykdhixt234-356 Rdotfostbf819-054 Irnt353-831 Very High >=190 Fasting Performing Organization Address [facility] Phone Number [address] [address] [phone] VAN Vitamin B12 and Folate (09/13/2017 12:43 AM HEALTH SCIENCE WRITER) Vitamin B12 166 (L) 213 - 816 pg/mL [facility] Folate 12.0 >=7.0 ng/mL [facility] Specimen Blood - Line, Venous Performing Organization Address [facility] Phone Number [address] [address] VAN TSH/Free T4 If Indicated (09/13/2017 12:43 AM HEALTH SCIENCE WRITER) TSH 1.31 0.35 - 4.94 uIU/mL [facility] Specimen Blood - Line, Venous Performing Organization Address [facility] Phone Number [address] [address] VAN Hemoglobin A1c (09/13/2017 12:43 AM HEALTH SCIENCE WRITER) Hemoglobin A1C 5.6 4.3 - 6.1 % [facility] Specimen Blood - Line, Venous Performing Organization Address [facility] Phone Number [address] [address] VAN after 06/26/2017 Advance Directives For more information, please contact:[address] [phone] Code Status Date Activated Date Inactivated Comments Full Code 09/12/2017 11:57 PM 09/15/2017 7:30 PM This code status was determined by: Patient
--- OUTSIDE RECORDS SUMMARY | 2018-06-27 12:01 | XMS REPORT ---
:1970 [facility] Organization [facility] Address [address] [place] [address] Care Team Providers Name Role Phone HORACIO [...] Reference Range Comments ANTI-DNA DS (BEAKER) (test hkae=8389) Negative LUPUS ANTICOAGULANT SCREEN WITH REFLEX TO [id number] 14:05:00 Test Item Value Reference Range Comments DRVV SCREEN RATIO (BEAKER) 0.71 <1.20 (test ofbd=8660) DRVV INTERPRETATION (BEAKER) Negative screen for Lupus (test tpyn=9551) Anticoagulant PROTIME (BEAKER) (test 13.5 seconds 11.7-14.7 lqzu=269) INR (BEAKER) (test wowa=143) 1.0 <=5.9 PARTIAL THROMBOPLASTIN TIME 23.5 seconds 22.5-36.0 (BEAKER) (test buqj=393) PTT-LA (BEAKER) (test 26.7 32.0-41.8 pkzk=[id number]) AUEG-SIHIHSMNYXZ-954 (BEAKER) Irvin Henderson M.D. (test qqwa=8359) (electonic signature) ANTI-NUCLEAR ANTIBODY ([place])2017-09-18 10:00:00 Test Item Value Reference Range Comments ANTI-NUCLEAR ANTIBODY ([place]) (BEAKER) (test Positive Negative znme=525) [place] TITER AND [id number] 10:00:00 Test Item Value Reference Range Comments [place] TITER (BEAKER) (test hzzm=3443) :160 [place] PATTERN (BEAKER) (test otje=2585) Homogeneous URINE [id number] 10:24:00 Test Item Value Reference Range Comments CULTURE (BEAKER) (test >100,000 col/mL Same organism has tcer=1055) been isolated from cultures(s) of the same body site within 3 days. Repeat identification and susceptibility testing performed only after consultation with the clinical microbiology laboratory.Refer to previous culture ofKlebsiella pneumoniae URINE [id number] 09:32:00 Test Item Value Reference Range Comments CULTURE (BEAKER) (test yxjf=5908) Amikacin (test code=1) Ampicillin + Sulbactam (test code=6) Aztreonam (test code=32) Cefepime (test code=51) Cefoxitin (test code=68) Ceftazidime (test code=27) Ceftriaxone (test code=52) Ertapenem (test code=38) Gentamicin (test code=18) Levofloxacin (test code=22) Meropenem (test code=34) Nitrofurantoin (test code=23) Piperacillin + Tazobactam (test code=29) Tetracycline (test code=2) Tobramycin (test code=25) Trimethoprim + Sulfamethoxazole (test code=47) CULTURE (BEAKER) (test vpel=8543) >100,000 col/mL Klebsiella pneumoniae CBC W/PLT COUNT & AUTO [id number] 08:12:00 Test Item Value Reference Range Comments WHITE BLOOD CELL COUNT (BEAKER) (test xwxo=967) 4.9 K/ L 3.5-10.5 RED BLOOD CELL COUNT (BEAKER) (test wgyh=414) 4.08 M/ L 3.93-5.22 HEMOGLOBIN (BEAKER) (test xskt=241) 11.9 GM/DL 11.2-15.7 HEMATOCRIT (BEAKER) (test sufk=015) 36.6 % 34.1-44.9 MEAN CORPUSCULAR VOLUME (BEAKER) (test kgex=235) 89.7 fL 79.4-94.8 MEAN CORPUSCULAR HEMOGLOBIN (BEAKER) (test 29.2 pg 25.6-32.2 odek=861) MEAN CORPUSCULAR HEMOGLOBIN CONC (BEAKER) (test 32.5 GM/DL 32.2-35.5 albo=167) RED CELL DISTRIBUTION WIDTH (BEAKER) (test 13.7 % 11.7-14.4 hfln=108) PLATELET COUNT (BEAKER) (test qwvv=993) 221 K/CU MM 150-450 MEAN PLATELET VOLUME (BEAKER) (test prvh=633) 11.0 fL 9.4-12.3 NUCLEATED RED BLOOD CELLS (BEAKER) (test 0 /100 WBC 0-0 bodv=873) NEUTROPHILS RELATIVE PERCENT (BEAKER) (test 47 % grwl=843) LYMPHOCYTES RELATIVE PERCENT (BEAKER) (test 42 % ueol=366) MONOCYTES RELATIVE PERCENT (BEAKER) (test 8 % dbdx=272) EOSINOPHILS RELATIVE PERCENT (BEAKER) (test 2 % jwma=062) BASOPHILS RELATIVE PERCENT (BEAKER) (test 0 % ebfj=297) NEUTROPHILS ABSOLUTE COUNT (BEAKER) (test 2.32 K/ L 1.56-6.13 kqjl=046) LYMPHOCYTES ABSOLUTE COUNT (BEAKER) (test 2.04 K/ L 1.18-3.74 zxia=273) MONOCYTES ABSOLUTE COUNT (BEAKER) (test 0.41 K/ L 0.24-0.36 llmh=603) EOSINOPHILS ABSOLUTE COUNT (BEAKER) (test 0.10 K/ L 0.04-0.36 xnyd=171) BASOPHILS ABSOLUTE COUNT (BEAKER) (test 0.02 K/ L 0.01-0.08 fllm=044) IMMATURE GRANULOCYTES-RELATIVE PERCENT (BEAKER) 0 % 0-1 (test llau=2600) BASIC METABOLIC [id number] 08:08:00 Test Item Value Reference Range Comments SODIUM (BEAKER) (test 138 meq/L 136-145 gzxo=194) POTASSIUM (BEAKER) (test 3.9 meq/L 3.5-5.1 eybs=053) CHLORIDE (BEAKER) (test 108 meq/L 98-107 rono=919) CO2 (BEAKER) (test 22 meq/L 22-29 jqqt=390) BLOOD UREA NITROGEN 10 mg/dL 7-21 (BEAKER) (test qqfk=198) CREATININE (BEAKER) (test 0.71 mg/dL 0.57-1.25 zmwe=426) GLUCOSE RANDOM (BEAKER) 84 mg/dL 70-105 (test bhjr=845) CALCIUM (BEAKER) (test 8.5 mg/dL 8.4-10.2 blop=459) EGFR (BEAKER) (test mL/min/1.73 sq m INSUFFICIENT CLINICAL DATA jhwg=1977) TO CALCULATE ESTIMATED GFR. CARDIOLIPIN ANTIBODIES, IGG AND [id number] 14:48:00 Test Item Value Reference Range Comments ANTICARDIOLIPIN IGG ANTIBODY (BEAKER) (test < GPL yfva=400) ANTICARDIOLIPIN IGM ANTIBODY (BEAKER) (test 1.8 MPL kqty=725) Anticardiolipin IgG Result Interpretation:NEG: <20 GPL; U/mlPOS: >/=20 GPL; U/mlAnticardiolipin IgM Result Interpretation:NEG: <20 MPL; U/mlPOS: >/=20 MPL; U/mlBASIC METABOLIC [id number] 04:53:00 Test Item Value Reference Range Comments SODIUM (BEAKER) (test 137 meq/L 136-145 wluy=054) POTASSIUM (BEAKER) (test 4.2 meq/L 3.5-5.1 muyg=019) CHLORIDE (BEAKER) (test 111 meq/L 98-107 qmgm=661) CO2 (BEAKER) (test 20 meq/L 22-29 bpcw=427) BLOOD UREA NITROGEN 11 mg/dL 7-21 (BEAKER) (test lolx=453) CREATININE (BEAKER) (test 0.67 mg/dL 0.57-1.25 jtfx=517) GLUCOSE RANDOM (BEAKER) 96 mg/dL 70-105 (test wude=297) CALCIUM (BEAKER) (test 8.0 mg/dL 8.4-10.2 ynvi=335) EGFR (BEAKER) (test mL/min/1.73 sq m INSUFFICIENT CLINICAL DATA qycs=0088) TO CALCULATE ESTIMATED GFR. HEPATIC FUNCTION [id number] 04:51:00 Test Item Value Reference Range Comments TOTAL PROTEIN (BEAKER) (test hnmx=784) 6.1 gm/dL 6.0-8.3 ALBUMIN (BEAKER) (test besg=0303) 3.1 g/dL 3.5-5.0 BILIRUBIN TOTAL (BEAKER) (test oppu=931) 0.4 mg/dL 0.2-1.2 BILIRUBIN DIRECT (BEAKER) (test dwan=377) 0.2 mg/dL 0.1-0.5 ALKALINE PHOSPHATASE (BEAKER) (test zdeh=131) 71 U/L 40-150 AST (SGOT) (BEAKER) (test xypa=730) 13 U/L 5-34 ALT (SGPT) (BEAKER) (test mwqu=827) 11 U/L 6-55 CBC W/PLT COUNT & AUTO [id number] 04:11:00 Test Item Value Reference Range Comments WHITE BLOOD CELL COUNT (BEAKER) (test gifv=605) 5.6 K/ L 3.5-10.5 RED BLOOD CELL COUNT (BEAKER) (test bxel=399) 3.98 M/ L 3.93-5.22 HEMOGLOBIN (BEAKER) (test lpqd=993) 11.5 GM/DL 11.2-15.7 HEMATOCRIT (BEAKER) (test ogsx=122) 36.6 % 34.1-44.9 MEAN CORPUSCULAR VOLUME (BEAKER) (test zrtx=408) 92.0 fL 79.4-94.8 MEAN CORPUSCULAR HEMOGLOBIN (BEAKER) (test 28.9 pg 25.6-32.2 bunk=308) MEAN CORPUSCULAR HEMOGLOBIN CONC (BEAKER) (test 31.4 GM/DL 32.2-35.5 qrer=441) RED CELL DISTRIBUTION WIDTH (BEAKER) (test 14.3 % 11.7-14.4 vspb=967) PLATELET COUNT (BEAKER) (test nhel=085) 214 K/CU MM 150-450 MEAN PLATELET VOLUME (BEAKER) (test cdmw=308) 10.9 fL 9.4-12.3 NUCLEATED RED BLOOD CELLS (BEAKER) (test 0 /100 WBC 0-0 ghxj=739) NEUTROPHILS RELATIVE PERCENT (BEAKER) (test 51 % zirh=513) LYMPHOCYTES RELATIVE PERCENT (BEAKER) (test 39 % mlql=077) MONOCYTES RELATIVE PERCENT (BEAKER) (test 8 % ypkq=004) EOSINOPHILS RELATIVE PERCENT (BEAKER) (test 2 % xjyu=715) BASOPHILS RELATIVE PERCENT (BEAKER) (test 0 % xrlw=719) NEUTROPHILS ABSOLUTE COUNT (BEAKER) (test 2.81 K/ L 1.56-6.13 jnal=956) LYMPHOCYTES ABSOLUTE COUNT (BEAKER) (test 2.16 K/ L 1.18-3.74 klut=619) MONOCYTES ABSOLUTE COUNT (BEAKER) (test 0.42 K/ L 0.24-0.36 jgdm=894) EOSINOPHILS ABSOLUTE COUNT (BEAKER) (test 0.13 K/ L 0.04-0.36 ouqt=191) BASOPHILS ABSOLUTE COUNT (BEAKER) (test 0.01 K/ L 0.01-0.08 fyqd=435) IMMATURE GRANULOCYTES-RELATIVE PERCENT (BEAKER) 0 % 0-1 (test djhx=0048) URINALYSIS W/ [id number] 21:39:00 Test Item Value Reference Range Comments COLOR (BEAKER) (test ctxl=168) Light Yellow CLARITY (BEAKER) (test ekci=976) Hazy SPECIFIC GRAVITY UA (BEAKER) (test cfeq=443) 1.009 1.001-1.035 PH UA (BEAKER) (test lotg=108) 6.0 5.0-8.0 PROTEIN UA (BEAKER) (test lzqa=535) Negative Negative GLUCOSE UA (BEAKER) (test wrmv=141) Negative Negative KETONES UA (BEAKER) (test mfjr=997) Negative Negative BILIRUBIN UA (BEAKER) (test zwni=840) Negative Negative BLOOD UA (BEAKER) (test kbgw=536) Small Negative NITRITE UA (BEAKER) (test ermu=247) Negative Negative LEUKOCYTE ESTERASE UA (BEAKER) (test nann=528) Large Negative UROBILINOGEN UA (BEAKER) (test orov=311) 0.2 mg/dL 0.2-1.0 RBC UA (BEAKER) (test ipai=490) < /HPF WBC UA (BEAKER) (test lijp=169) 16 /HPF SQUAMOUS EPITHELIAL (BEAKER) (test ynvz=221) 3 /HPF SOURCE(BEAKER) (test mqtt=0930) Urine, Voided MR, MRA, BRAIN, WITHOUT [id number] 19:51:00Reason for exam:->Stroke s /p tPAWhat is the patient's sedation requirement?->No SedationFINAL REPORT MRA Head CLINICAL HISTORY: Stroke s/p tPA TECHNIQUE: MRA of the head utilizing 3-D pzeb-fi-tkwjim technique, with 3-D reconstructions. COMPARISON: None FINDINGS: There is no evidence for a soboba of [place] proximal branch vessel occlusion. There is a 2 mm protuberance of the left posterior communicating artery segment for which an infundibulum versus aneurysm cannot be distinguished. IMPRESSION: No evidence for a major soboba of [place] proximal branch vessel occlusion. 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 MRA Neck CLINICAL HISTORY: Stroke s/p tPA TECHNIQUE: MRA of the neck utilizing 2-D and 3-D pwka-fu-jfpzsx technique, with 3-D reconstructions. COMPARISON: None FINDINGS: The carotid arteries in the neck are patent including their bifurcations. There is antegrade flow in the vertebral arteries in the neck. There is left vertebral dominance. IMPRESSION: No evidence of hemodynamically significant stenosis in the cervical carotid or vertebral arteries by NASCET criteria. Signed: Ike Renteria Verified Date/Time: 09/13/2017 19:51:37 Reading Location: [facility] Radiology Reading Room MR, MRA, NECK, WITHOUT IV [id number] 19:51:00FINAL REPORT MRA Head CLINICAL HISTORY: Stroke s/p tPA TECHNIQUE: MRA of the head utilizing 3-D mhrc-xt-kxxivf technique, with 3-D reconstructions. COMPARISON: None FINDINGS: There is no evidence for a soboba of [place] proximal branch vessel occlusion. There is a 2 mm protuberance of the left posterior communicating artery segment for which an infundibulum versus aneurysm cannot be distinguished. IMPRESSION: No evidence for a major soboba of [place] proximal branch vessel occlusion. 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 MRA Neck CLINICAL HISTORY: Stroke s/p tPA TECHNIQUE: MRA of the neck utilizing 2-D and 3-D mrxz-wp-ltmssj technique, with 3-D reconstructions. COMPARISON: None FINDINGS: The carotid arteries in the neck are patent including their bifurcations. There is antegrade flow in the vertebral arteries in the neck. There is left vertebral dominance. IMPRESSION: No evidence of hemodynamically significant stenosis in the cervical carotid or vertebral arteries by NASCET criteria. Signed: Ike Renteria Verified Date/Time: 09/13/2017 19:51:37 Reading Location: [facility] Radiology Reading Room MR, BRAIN, WITHOUT [id number] 18:13:00Reason for exam:-> Stroke s/p tPAWhat is [...] Verified Date/Time: 09/13/2017 18:13 :57 Reading Location: [facility] Radiology Reading Room [id number] 12: 47:00 Test Item Value Reference Range Comments HOMOCYSTEINE (BEAKER) (test hfdx=619) 6.7 umol/L 5.1-15.4 TROPONIN [id number] 09:59:00 Test Item Value Reference Range Comments TROPONIN I (BEAKER) (test esri=415) < ng/mL 0.00-0.03 Troponin I (TnI) levels [...] acute neurological disease, and persistent tachyarrhythmia.URINALYSIS W/ [id number] 05: 52:00 Test Item Value Reference Range Comments COLOR (BEAKER) (test aibq=350) Light Yellow CLARITY (BEAKER) (test nlms=952) Hazy SPECIFIC GRAVITY UA (BEAKER) (test fgra=679) 1.007 1.001-1.035 PH UA (BEAKER) (test bbtl=805) 7.0 5.0-8.0 PROTEIN UA (BEAKER) (test lxro=580) Negative Negative GLUCOSE UA (BEAKER) (test zrid=772) Negative Negative KETONES UA (BEAKER) (test kscz=485) Negative Negative BILIRUBIN UA (BEAKER) (test atfb=486) Negative Negative BLOOD UA (BEAKER) (test ugql=449) Moderate Negative NITRITE UA (BEAKER) (test lbzc=722) Positive Negative LEUKOCYTE ESTERASE UA (BEAKER) (test cnoh=892) Large Negative UROBILINOGEN UA (BEAKER) (test ohmc=912) 0.2 mg/dL 0.2-1.0 RBC UA (BEAKER) (test lliy=491) 3 /HPF WBC UA (BEAKER) (test piqk=571) 5 /HPF BACTERIA (BEAKER) (test vakn=157) Moderate MUCUS (BEAKER) (test zlvn=3380) Occasional SQUAMOUS EPITHELIAL (BEAKER) (test rfnq=625) 5 /HPF AMORPHOUS CRYSTALS (BEAKER) (test emyl=8778) Rare SOURCE(BEAKER) (test vbma=9224) Urine, Voided HEMOGLOBIN [id number] 05:17:00 Test Item Value Reference Range Comments HEMOGLOBIN A1C (BEAKER) (test xgfb=433) 5.6 % 4.3-6.1 BASIC METABOLIC [id number] 04:24:00 Test Item Value Reference Range Comments SODIUM (BEAKER) (test 137 meq/L 136-145 bxot=363) POTASSIUM (BEAKER) (test 4.3 meq/L 3.5-5.1 Specimen slightly fapu=492) hemolyzed CHLORIDE (BEAKER) (test 108 meq/L 98-107 xwnu=131) CO2 (BEAKER) (test 22 meq/L 22-29 afzx=972) BLOOD UREA NITROGEN 9 mg/dL 7-21 (BEAKER) (test iumv=247) CREATININE (BEAKER) (test 0.65 mg/dL 0.57-1.25 Specimen slightly zfzx=010) hemolyzed GLUCOSE RANDOM (BEAKER) 93 mg/dL 70-105 (test uuun=059) CALCIUM (BEAKER) (test 8.2 mg/dL 8.4-10.2 eykl=716) EGFR (BEAKER) (test mL/min/1.73 sq m INSUFFICIENT CLINICAL DATA hmmy=8535) TO CALCULATE ESTIMATED GFR. FastingLIPID [id number] 04:22:00 Test Item Value Reference Range Comments TRIGLYCERIDES (BEAKER) (test 93 mg/dL Specimen slightly hemolyzed shpe=141) CHOLESTEROL (BEAKER) (test 178 mg/dL Specimen slightly hemolyzed usyv=204) HDL CHOLESTEROL (BEAKER) (test 49 mg/dL kqft=420) LDL CHOLESTEROL CALCULATED 110 mg/dL (BEAKER) (test cgem=633) Triglyceride Reference Range: Low Risk <150 Borderline 150- 199 High Risk 200-499 Very High Risk >=500Cholesterol Reference Range: Low Risk <200 Borderline 200-239 High Risk > 240HDL Cholesterol Reference Range: Low Risk >=60 High Risk <40LDL Cholesterol Reference Range: Optimal <100 Near Optimal 100-129 Borderline 130-159 High 160-189 Very High >=190 FastingCBC W/PLT COUNT & AUTO [id number] 04:07:00 Test Item Value Reference Range Comments WHITE BLOOD CELL COUNT (BEAKER) (test pgni=804) 6.4 K/ L 3.5-10.5 RED BLOOD CELL COUNT (BEAKER) (test ocqk=955) 4.00 M/ L 3.93-5.22 HEMOGLOBIN (BEAKER) (test hyrm=610) 11.5 GM/DL 11.2-15.7 HEMATOCRIT (BEAKER) (test tdqv=931) 35.3 % 34.1-44.9 MEAN CORPUSCULAR VOLUME (BEAKER) (test dpzv=117) 88.3 fL 79.4-94.8 MEAN CORPUSCULAR HEMOGLOBIN (BEAKER) (test 28.8 pg 25.6-32.2 mxjv=045) MEAN CORPUSCULAR HEMOGLOBIN CONC (BEAKER) (test 32.6 GM/DL 32.2-35.5 bvwa=575) RED CELL DISTRIBUTION WIDTH (BEAKER) (test 13.8 % 11.7-14.4 jxsl=488) PLATELET COUNT (BEAKER) (test mfzo=369) 236 K/CU MM 150-450 MEAN PLATELET VOLUME (BEAKER) (test ejrx=583) 10.8 fL 9.4-12.3 NUCLEATED RED BLOOD CELLS (BEAKER) (test 0 /100 WBC 0-0 wsae=886) NEUTROPHILS RELATIVE PERCENT (BEAKER) (test 58 % qvag=110) LYMPHOCYTES RELATIVE PERCENT (BEAKER) (test 33 % spkx=285) MONOCYTES RELATIVE PERCENT (BEAKER) (test 8 % oego=669) EOSINOPHILS RELATIVE PERCENT (BEAKER) (test 1 % kjuy=331) BASOPHILS RELATIVE PERCENT (BEAKER) (test 0 % fdyp=526) NEUTROPHILS ABSOLUTE COUNT (BEAKER) (test 3.70 K/ L 1.56-6.13 pzfm=577) LYMPHOCYTES ABSOLUTE COUNT (BEAKER) (test 2.07 K/ L 1.18-3.74 jmcc=806) MONOCYTES ABSOLUTE COUNT (BEAKER) (test 0.51 K/ L 0.24-0.36 yyoy=801) EOSINOPHILS ABSOLUTE COUNT (BEAKER) (test 0.06 K/ L 0.04-0.36 zcuq=825) BASOPHILS ABSOLUTE COUNT (BEAKER) (test 0.02 K/ L 0.01-0.08 qqkk=877) IMMATURE GRANULOCYTES-RELATIVE PERCENT (BEAKER) 0 % 0-1 (test yqhy=5990) TSH/FREE T4 IF [id number] 02:20:00 Test Item Value Reference Range Comments THYROID STIMULATING HORMONE (BEAKER) (test 1.31 uIU/mL 0.35-4.94 elwb=906) VITAMIN B12 AND [id number] 02:20:00 Test Item Value Reference Range Comments VITAMIN B12 (BEAKER) (test egjc=935) 166 pg/mL 213-816 FOLATE (BEAKER) (test oepc=943) 12.0 ng/mL >=7.0 TROPONIN [id number] 01:53:00 Test Item Value Reference Range Comments TROPONIN I (BEAKER) (test ajbd=145) < ng/mL 0.00-0.03 Troponin I (TnI) levels [...] acute neurological disease, and persistent tachyarrhythmia.BASIC METABOLIC [id number] 01:53:00 Test Item Value Reference Range Comments SODIUM (BEAKER) (test 139 meq/L 136-145 wvbn=475) POTASSIUM (BEAKER) (test 4.1 meq/L 3.5-5.1 xawy=618) CHLORIDE (BEAKER) (test 108 meq/L 98-107 gxqn=040) CO2 (BEAKER) (test 22 meq/L 22-29 jser=744) BLOOD UREA NITROGEN 10 mg/dL 7-21 (BEAKER) (test wmiz=385) CREATININE (BEAKER) (test 0.67 mg/dL 0.57-1.25 gdzv=731) GLUCOSE RANDOM (BEAKER) 101 mg/dL 70-105 (test xlbn=317) CALCIUM (BEAKER) (test 8.5 mg/dL 8.4-10.2 arcy=217) EGFR (BEAKER) (test mL/min/1.73 sq m INSUFFICIENT CLINICAL DATA ffjg=6285) TO CALCULATE ESTIMATED GFR. CBC W/PLT COUNT & AUTO [id number] 01:28:00 Test Item Value Reference Range Comments WHITE BLOOD CELL COUNT (BEAKER) (test nreq=531) 7.0 K/ L 3.5-10.5 RED BLOOD CELL COUNT (BEAKER) (test dnwk=093) 4.13 M/ L 3.93-5.22 HEMOGLOBIN (BEAKER) (test iyku=623) 12.0 GM/DL 11.2-15.7 HEMATOCRIT (BEAKER) (test pbec=741) 36.6 % 34.1-44.9 MEAN CORPUSCULAR VOLUME (BEAKER) (test ruvo=400) 88.6 fL 79.4-94.8 MEAN CORPUSCULAR HEMOGLOBIN (BEAKER) (test 29.1 pg 25.6-32.2 jmxf=428) MEAN CORPUSCULAR HEMOGLOBIN CONC (BEAKER) (test 32.8 GM/DL 32.2-35.5 ijvi=350) RED CELL DISTRIBUTION WIDTH (BEAKER) (test 13.8 % 11.7-14.4 zxoh=526) PLATELET COUNT (BEAKER) (test uedj=505) 225 K/CU MM 150-450 MEAN PLATELET VOLUME (BEAKER) (test vvic=961) 11.0 fL 9.4-12.3 NUCLEATED RED BLOOD CELLS (BEAKER) (test 0 /100 WBC 0-0 rvvv=967) NEUTROPHILS RELATIVE PERCENT (BEAKER) (test 65 % zjhl=938) LYMPHOCYTES RELATIVE PERCENT (BEAKER) (test 27 % khts=201) MONOCYTES RELATIVE PERCENT (BEAKER) (test 7 % ylyf=335) EOSINOPHILS RELATIVE PERCENT (BEAKER) (test 1 % cdeb=766) BASOPHILS RELATIVE PERCENT (BEAKER) (test 0 % uxyf=676) NEUTROPHILS ABSOLUTE COUNT (BEAKER) (test 4.51 K/ L 1.56-6.13 rhiu=936) LYMPHOCYTES ABSOLUTE COUNT (BEAKER) (test 1.91 K/ L 1.18-3.74 jvqc=970) MONOCYTES ABSOLUTE COUNT (BEAKER) (test 0.45 K/ L 0.24-0.36 qvux=326) EOSINOPHILS ABSOLUTE COUNT (BEAKER) (test 0.06 K/ L 0.04-0.36 tyot=414) BASOPHILS ABSOLUTE COUNT (BEAKER) (test 0.02 K/ L 0.01-0.08 oell=640) IMMATURE GRANULOCYTES-RELATIVE PERCENT (BEAKER) 0 % 0-1 (test oadu=8586)
[2018-06-27 12:29] LABS: Absolute Lymphocytes (CBC) 1.7 K/uL (0.7-4.9); Absolute Monocytes 0.4 K/uL (0.1-1.3); Absolute Neutrophil 2.9 K/uL (1.8-8.0); Basophils % 0.4 % (0-1.3); Eosinophils % 1.7 % (0-4.4); Hematocrit 39.2 % (36.0-45.0); Lymphocytes % 33.8 % (15.3-44.8); MCH 29.4 pg (27.0-35.0); MCV 87.2 fL (80-100); MPV 9.1 fL (7.6-11.3); Monocytes % 7.2 % (3.3-12.3); RBC Red Blood Cell Count 4.49 M/uL (3.86-4.86)
[2018-06-27 12:41] LABS: Protime INR 0.93
[2018-06-27] MEDS ORDERED: ASPIRIN 81 MG CHEWABLE TABLET ONE (12:48)
[2018-06-27 12:49] LABS: ALT/SGPT 28 U/L (12-78); AST/SGOT 26 U/L (15-37); Albumin 3.2 g/dL (3.4-5.0); Alkaline Phosphatase 91 U/L (45-117); BUN Blood Urea Nitrogen 12 mg/dL (7-18); Bicarbonate 22 mmol/L (21-32); Bilirubin Direct 0.1 mg/dL (0-0.2); Bilirubin Total 0.4 mg/dL (0.2-1.0); Glucose Level 133 mg/dL (74-106); Magnesium 2.2 mg/dL (1.8-2.4); NT PRO-BNP 63 pg/mL (<125); Potassium 3.5 mmol/L (3.5-5.1); Protein, Total 7.4 g/dL (6.4-8.2); Sodium Level 138 mmol/L (136-145); Troponin (Emerg Dept Use Only) < 0.02 ng/mL (0.0-0.045)
--- NOTE | 2018-06-27 12:51 | RAD REPORT ---
EXAM DESCRIPTION: RAD - Chest Single View - 06/27/2018 12:46 pm CLINICAL HISTORY: CHEST PAIN Chest pain. COMPARISON: Chest Single View dated 09/12/2017; Chest Single View dated 08/28/2017; CHEST SINGLE VIEW dated 06/27/2014; CHEST SINGLE VIEW dated 06/06/2014 FINDINGS: Portable technique limits examination quality. The lungs are grossly clear. The heart is normal in size. No displaced fractures. IMPRESSION: No acute intrathoracic process suspected.
--- NOTE | 2018-06-27 16:21 | EDPHYS ---
Physician Documentation [facility] Name: Anjelica Grover Age: 47 yrs Sex: Female : 1970 Arrival Date: 06/27/2018 Time: 12:00 Bed 8 Private MD: Eleuterio Peterson ED Physician Kingsley Frank HPI: 06/27 12:30 This 47 yrs old Female presents to ER via Ambulatory with complaints of Chest jr8 Pain. 12:30 The patient or guardian reports chest pain that is located primarily in the substernal jr8 area. Onset: acutely, today. The pain does not radiate. Associated signs and symptoms: The patient has no apparent associated signs or symptoms. The chest pain is described as sharp, stabbing. Duration: The patient or guardian reports multiple episodes, that are intermittent, that wax and wane. Modifying factors: The symptoms are alleviated by nothing. the symptoms are aggravated by nothing. Severity of pain: At its worst the pain was moderate in the emergency department the pain is unchanged. The patient has not experienced similar symptoms in the past. The patient has not recently seen a physician. 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 - Social history:: Smoking status: Patient/guardian denies using tobacco, Patient/guardian denies using alcohol. - Ebola Screening: : Patient negative for fever greater than or equal to 101.5 degrees Fahrenheit, and additional compatible Ebola Virus Disease symptoms Patient denies exposure to infectious person Patient denies travel to an Ebola-affected area in the 21 days before illness onset. ROS: 12:30 Eyes: Negative for injury, pain, redness, and discharge, ENT: Negative for injury, jr8 pain, and discharge, Neck: Negative for injury, pain, and swelling, Respiratory: Negative for shortness of breath, cough, wheezing, and pleuritic chest pain, Abdomen/GI: Negative for abdominal pain, nausea, vomiting, diarrhea, and constipation, Back: Negative for injury and pain, MS/Extremity: Negative for injury and deformity, Skin: Negative for injury, rash, and discoloration, Neuro: Negative for headache, weakness, numbness, tingling, and seizure. 12:30 Cardiovascular: Positive for chest pain, Negative for edema, orthopnea, palpitations, paroxysmal nocturnal dyspnea. Exam: 12:30 Eyes: Pupils equal round and reactive to light, extra-ocular motions intact. Lids and jr8 lashes normal. Conjunctiva and sclera are non-icteric and not injected. Cornea within normal limits. Periorbital areas with no swelling, redness, or edema. ENT: Nares patent. No nasal discharge, no septal abnormalities noted. Tympanic membranes are normal and external auditory canals are clear. Oropharynx with no redness, swelling, or masses, exudates, or evidence of obstruction, uvula midline. Mucous membranes moist. Neck: Trachea midline, no thyromegaly or masses palpated, and no cervical lymphadenopathy. Supple, full range of motion without nuchal rigidity, or vertebral point tenderness. No Meningismus. Chest/axilla: Normal chest wall appearance and motion. Nontender with no deformity. No lesions are appreciated. Cardiovascular: Regular rate and rhythm with a normal S1 and S2. No gallops, murmurs, or rubs. Normal PMI, no JVD. No pulse deficits. Respiratory: Lungs have equal breath sounds bilaterally, clear to auscultation and percussion. No rales, rhonchi or wheezes noted. No increased work of breathing, no retractions or nasal flaring. Abdomen/GI: Soft, non-tender, with normal bowel sounds. No distension or tympany. No guarding or rebound. No evidence of tenderness throughout. Back: No spinal tenderness. No costovertebral tenderness. Full range of motion. Skin: Warm, dry with normal turgor. Normal color with no rashes, no lesions, and no evidence of cellulitis. MS/ Extremity: Pulses equal, no cyanosis. Neurovascular intact. Full, normal range of motion. Neuro: Awake and alert, GCS 15, oriented to person, place, time, and situation. Cranial nerves II-XII grossly intact. Motor strength 5/5 in all extremities. Sensory grossly intact. Cerebellar exam normal. Normal gait. Vital Signs: 12:15 BP 133 / 90; Pulse 87; Resp 18; Temp 98.0(TE); Pulse Ox 100% on R/A; Weight 62.6 kg; hj Height 5 ft. 3 in. (160.02 cm); Pain 10/10; 13:52 BP 128 / 76; Pulse 85; Resp 18; Pulse Ox 100% on R/A; hj 14:30 BP 125 / 75; Pulse 84; Resp 18; Pulse Ox 100% on R/A; hj 15:23 BP 127 / 70; Pulse 85; Resp 18; Pulse Ox 100% on R/A; hj 12:15 Body Mass Index 24.45 (62.60 kg, 160.02 cm) MDM: 12:04 Patient medically screened. jr8 16:19 The patient was given aspirin in the Emergency Department. Data reviewed: vital signs, [facility] nurses notes, lab test result(s), EKG, radiologic studies, plain films. Data interpreted: Pulse oximetry: on room air is 100 %. Interpretation: normal. 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 ED course: Patient with no chest pain currently. ECG, imaging, and troponin's negative. Will have patient follow up with cardiology. Patient good with plan . 06/27 12:13 Order name: Basic Metabolic Panel; Complete Time: 12:51 jr8 06/27 12:13 Order name: CBC with Diff; Complete Time: 12:41 jr8 06/27 12:13 Order name: LFT's; Complete Time: 12:51 jr8 06/27 12:13 Order name: Magnesium; Complete Time: 12:51 jr8 06/27 12:13 Order name: NT PRO-BNP; Complete Time: 12:51 jr8 06/27 12:13 Order name: PT-INR; Complete Time: 12:51 jr8 12/12 12:13 Order name: Troponin (emerg Dept Use Only); Complete Time: 12:51 jr8 06/27 12:13 Order name: XRAY Chest (1 view); Complete Time: 12:53 jr8 06/27 12:13 Order name: EKG; Complete Time: 12:14 jr8 06/27 12:13 Order name: Cardiac monitoring; Complete Time: 12:16 jr8 06/27 12:13 Order name: EKG - Nurse/Tech; Complete Time: 12:16 jr8 06/27 12:13 Order name: IV Saline Lock; Complete Time: 12:22 jr8 06/27 15:05 Order name: Troponin (emerg Dept Use Only); Complete Time: 16:12 jr8 06/27 12:13 Order name: Labs collected and sent; Complete Time: 12:22 jr8 06/27 12:13 Order name: O2 Per Protocol; Complete Time: 12:16 jr8 06/27 12:13 Order name: O2 Sat Monitoring; Complete Time: 12:16 jr8 Administered Medications: 12:42 Drug: Aspirin Chewable Tablet 324 mg Route: PO; hj 12:53 Follow up: Response: No adverse reaction hj Disposition: 06/27/18 16:20 Discharged to Home. Impression: Chest pain, unspecified. - Condition is Stable. - Discharge Instructions: Nonspecific Chest Pain, Aspirin and Your Heart, Chest Pain Observation. - Medication Reconciliation Form, Thank You Letter, Antibiotic Education, Prescription Opioid Use form. - Follow up: Ajay Webb MD; When: 1 - 2 days; Reason: Recheck today's complaints, Continuance of care, Re-evaluation by your physician. - Problem is new. - Symptoms have improved. Addendum: 07/03/2018 01:27 Co-signature as Attending Physician, Kingsley Frank MD. r n Signatures: Dispatcher [employer] [facility] Kingsley Frank MD MD rn Roszak, Josh, PA PA jr8 Walt Landry RN RN hj Corrections: (The following items were deleted from the chart) 06/27 12:19 12:11 Home Meds: Metoprolol Tartrate Oral; hj 12:30 12:30 Eyes: Pupils equal round and reactive to light, extra-ocular motions intact. Lids jr8 and lashes normal. Conjunctiva and sclera are non-icteric and not injected. Cornea within normal limits. Periorbital areas with no swelling, redness, or edema. ENT: Nares patent. No nasal discharge, no septal abnormalities noted. Tympanic membranes are normal and external auditory canals are clear. Oropharynx with no redness, swelling, or masses, exudates, or evidence of obstruction, uvula midline. Mucous membranes moist. Neck: Trachea midline, no thyromegaly or masses palpated, and no cervical lymphadenopathy. Supple, full range of motion without nuchal rigidity, or vertebral point tenderness. No Meningismus. Cardiovascular: Regular rate and rhythm with a normal S1 and S2. No gallops, murmurs, or rubs. Normal PMI, no JVD. No pulse deficits. Respiratory: Lungs have equal breath sounds bilaterally, clear to auscultation and percussion. No rales, rhonchi or wheezes noted. No increased work of breathing, no retractions or nasal flaring. Abdomen/GI: Soft, non-tender, with normal bowel sounds. No distension or tympany. No guarding or rebound. No evidence of tenderness throughout. Back: No spinal tenderness. No costovertebral tenderness. Full range of motion. Skin: Warm, dry with normal turgor. Normal color with no rashes, no lesions, and no evidence of cellulitis. MS/ Extremity: Pulses equal, no cyanosis. Neurovascular intact. Full, normal range of motion. Neuro: Awake and alert, GCS 15, oriented to person, place, time, and situation. Cranial nerves II-XII grossly intact. Motor strength 5/5 in all extremities. Sensory grossly intact. Cerebellar exam normal. Normal gait. jr8 16:35 16:20 06/27/2018 16:20 Discharged to Home. Impression: Chest pain, unspecified. hj Condition is Stable. Forms are Medication Reconciliation Form, Thank You Letter, Antibiotic Education, Prescription Opioid Use. Follow up: Ajay Webb; When: 1 - 2 days; Reason: Recheck today's complaints, Continuance of care, Re-evaluation by your physician. Problem is new. Symptoms have improved. jr8
--- NOTE | 2018-06-27 16:21 | ER ---
Nurse's Notes [facility] Name: Anjelica Grover Age: 47 yrs Sex: Female : 1970 Arrival Date: 06/27/2018 Time: 12:00 Bed 8 Private MD: Eleuterio Peterson Diagnosis: Chest pain, unspecified Presentation: 06/27 12:08 Presenting complaint: Child states: pt nepali speaking only, pt started complaining of hj chest pain on the L upper chest area, non radiating, describes as stabbing pain, 10/10 at worst; complaints of SOB;. Transition of care: patient was not received from another setting of care. Onset of symptoms was June 27, 2018. Risk Assessment: Do you want to hurt yourself or someone else? Patient reports no desire to harm self or others. Initial Sepsis Screen: Does the patient meet any 2 criteria? No. Patient's initial sepsis screen is negative. Does the patient have a suspected source of infection? No. Patient's initial sepsis screen is negative. Care prior to arrival: None. 12:08 Method Of Arrival: Ambulatory 12:08 Acuity: CHAN 3 hj Triage Assessment: 12:11 General: Appears in no apparent distress. uncomfortable, Behavior is calm, cooperative, hj appropriate for age. Pain: Complains of pain in chest Pain does not radiate. EENT: No signs and/or symptoms were reported regarding the EENT system. Neuro: Level of Consciousness is awake, alert, obeys commands, Oriented to person, place, time, situation, Appropriate for age. Cardiovascular: Capillary refill < 3 seconds Patient's skin is warm and dry. Respiratory: Airway is patent Respiratory effort is even, unlabored, Respiratory pattern is regular, symmetrical. GI: No signs and/or symptoms were reported involving the gastrointestinal system. : No signs and/or symptoms were reported regarding the genitourinary system. Derm: No signs and/or symptoms reported regarding the dermatologic system. Musculoskeletal: No signs and/or symptoms reported regarding the musculoskeletal system. 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 - Social history:: Smoking status: Patient/guardian denies using tobacco, Patient/guardian denies using alcohol. - Ebola Screening: : Patient negative for fever greater than or equal to 101.5 degrees Fahrenheit, and additional compatible Ebola Virus Disease symptoms Patient denies exposure to infectious person Patient denies travel to an Ebola-affected area in the 21 days before illness onset. Screenin:13 Abuse screen: Denies threats or abuse. Denies injuries from another. Nutritional hj screening: No deficits noted. Tuberculosis screening: No symptoms or risk factors identified. Fall Risk None identified. Assessment: 12:14 Pain: Pain began suddenly, 1 hour ago. Vital Signs: 12:15 BP 133 / 90; Pulse 87; Resp 18; Temp 98.0(TE); Pulse Ox 100% on R/A; Weight 62.6 kg; hj Height 5 ft. 3 in. (160.02 cm); Pain 10/10; 13:52 BP 128 / 76; Pulse 85; Resp 18; Pulse Ox 100% on R/A; hj 14:30 BP 125 / 75; Pulse 84; Resp 18; Pulse Ox 100% on R/A; hj 15:23 BP 127 / 70; Pulse 85; Resp 18; Pulse Ox 100% on R/A; hj 12:15 Body Mass Index 24.45 (62.60 kg, 160.02 cm) ED Course: 12:00 Patient arrived in ED. mr 12:00 Eleuterio Peterson MD is Private Physician. mr 12:04 Rajinder Brody PA is PHCP. jr8 12:04 Kingsley Frank MD is Attending Physician. jr8 12:08 Walt Landry, LATIA is Primary Nurse. hj 12:10 Triage completed. hj 12:14 Arm band placed on right wrist. hj 12:14 Patient has correct armband on for positive identification. Bed in low position. Call light in reach. Side rails up X 1. Adult w/ patient. court recording monitor on. Pulse ox on. NIBP on. 12:15 Patient maintains SpO2 saturation greater than 95% on room air. 12:20 Inserted saline lock: 22 gauge in left forearm, using aseptic technique. [facility] 12:20 Initial lab(s) drawn, by me, sent to lab. Missed attempt(s): 22 gauge in right jl7 antecubital area. Bleeding controlled, band aid applied, catheter tip intact. 12:43 X-ray completed. Portable x-ray completed in exam room. Patient tolerated procedure 1 well. 12:44 XRAY Chest (1 view) In Process Unspecified. EDID 15:38 Repeat lab(s) drawn. by me, sent to lab. 3 16:20 Ajay Webb MD is Referral Physician. [facility] 16:35 No provider procedures requiring assistance completed. IV discontinued, intact, hj bleeding controlled, No redness/swelling at site. Pressure dressing applied. Administered Medications: 12:42 Drug: Aspirin Chewable Tablet 324 mg Route: PO; 12:53 Follow up: Response: No adverse reaction Outcome: 16:20 Discharge ordered by . [facility] 16:35 Discharged to home ambulatory. 16:35 Condition: stable 16:35 Discharge instructions given to patient, family, Instructed on discharge instructions, follow up and referral plans. Demonstrated understanding of instructions, follow-up care. 16:35 Patient left the ED. Signatures: Dispatcher [employer] [facility] Shelley Butt Martha 1 Rajinder Brody PA PA jr8 Walt Landry RN RN Terrence Quesada RN RN jl7 Nicol Reddy 3 Corrections: (The following items were deleted from the chart) 12:19 12:11 Home Meds: Metoprolol Tartrate Oral; [facility]
[2018-06-27 16:44] VITALS: TEMP 98; O2SAT 100
[2018-06-27 16:47] VITALS: BP 127/70
--- NOTE | 2018-06-28 05:18 | EKG ---
Test Date: 2018-06-27 Test Time: 12:07:35 Cloth Finisher: NAV MEASUREMENT RESULTS: Intervals: Rate: 90 MI: 122 QRSD: 84 QT: 384 QTc: 469 Bertrand: P: 54 MI: 122 QRS: 70 T: 47 INTERPRETIVE STATEMENTS: Normal sinus rhythm Normal ECG Compared to ECG 09/12/2017 16:14:23 Prolonged QT interval no longer present Electronically Signed On 06-28-18 05:17:35 [employer]ES [employer]END[employer] by Ajay Webb
== END 2018-06-27 16:35 | disposition home or self-care (01) ==
LOC: ER 11:57
DX: R07.9 Chest pain, unspecified (principal); I10 Essential (primary) hypertension; Z88.5 Allergy status to narcotic agent
CPT/HCPCS: 36415; 71045; 80048; 80076; 83735; 83880; 84484; 85025; 85610; 93005; 99285

== ENCOUNTER 2018-09-19 19:29 | Observation (INO) | payer SELFPAY ==
--- OUTSIDE RECORDS SUMMARY | 2018-09-19 19:31 | XMS REPORT | Clinical Summary ---
:1970 Author Organization [facility]ly [facility] Address [address] [place] [address] Care Team Providers Name Role Phone Sharpfarhana Primary Care Provider Allergies Active Allergy Reactions Severity Noted Date Comments Codeine Other (See Comments) 09/13/2017 Stomach pain Medications Medication Sig Dispensed Refills Start Date End Date Status metoprolol (TOPROL-XL) Take 100 mg by 0 Active 100 MG 24 hr tablet mouth daily. entecavir (BARACLUDE) Take 0.5 mg by 0 Active 0.5 MG tablet mouth daily. aspirin 81 MG chewable Take 1 tablet 30 tablet 2 09/16/2017 09/16/2018 tablet (81 mg total) by mouth daily. atorvastatin (LIPITOR) Take 1 tablet 30 tablet 2 09/15/2017 09/15/2018 40 MG tablet (40 mg total) by mouth nightly. cyanocobalamin (VITAMIN Take 1 tablet 30 tablet 2 09/15/2017 09/15/2018 B-12) 100 MCG tablet (100 mcg total) by mouth daily. ondansetron (ZOFRAN) 4 Take 1 tablet 30 tablet 0 09/15/2017 09/22/2017 MG tablet (4 mg total) by mouth every 8 (eight) hours as needed for Nausea for up to 7 days. ciprofloxacin HCl Take 1 tablet 10 tablet 0 09/15/2017 09/20/2017 (CIPRO) 500 MG tablet (500 mg total) by mouth 2 (two) times daily for 5 days. Active Problems Problem Noted Date Anxiety 09/15/2017 Essential hypertension 09/13/2017 Hepatitis B 09/13/2017 Hyperlipidemia 09/13/2017 SVT (supraventricular tachycardia) 09/13/2017 UTI (urinary tract infection) 09/13/2017 Ischemic stroke 09/12/2017 S/P admn tPA in diff fac w/n last 24 hr bef adm to crnt fac 09/12/2017 Social History Tobacco Use Types Packs/Day Years Used Date Never Smoker Alcohol Use Drinks/Week oz/Week Comments No Sex Assigned at Date Recorded Not on file Job Start Date Occupation Industry Not on file Not on file Not on file Travel History Travel Start Travel End No recent travel history available. Last Filed Vital Signs Not on file Plan of Treatment Not on file Procedures Procedure Name Priority Date/Time Associated Diagnosis Comments REPORT OF PROCEDURE - 09/18/2017 12:51 PM PERSONNEL CLERK ENDOSCOPY SCAN RHYTHM STRIP - SCAN 09/18/2017 12:50 PM PERSONNEL CLERK after 09/18/2017 Results EKG-SCANNED (09/18/2017 12:51 PM PERSONNEL CLERK) Narrative Performed At RHYTHM STRIP - SCAN (09/18/2017 12:50 PM PERSONNEL CLERK) Narrative Performed At after 09/18/2017 Advance Directives For more information, please contact:[id number] [place], [place] [phone] Code Status Date Activated Date Inactivated Comments Full Code 09/12/2017 11:57 PM 09/15/2017 7:30 PM This code status was determined by: Patient
--- OUTSIDE RECORDS SUMMARY | 2018-09-19 19:32 | XMS REPORT ---
:1970 [facility] [address] [place] [address] Care Team Providers Name Role Phone NIDHISABRINAHORACIO DAMON Unavailable Unavailable Problems This patient has no known problems. Allergies, Adverse Reactions, Alerts This patient has no known allergies or adverse reactions. Medications This patient has no known medications. Results Test Description Test Time Test Comments Text Results Atomic Results Result Comments DOUBLE-STRANDED DNA (DSDNA) ANTIBODY 2017-09-19 09:29:00 Test Item Value Reference Range Comments ANTI-DNA DS (BEAKER) (test dwuy=5595) Negative LUPUS ANTICOAGULANT SCREEN WITH REFLEX TO [id number] 14:05:00 Test Item Value Reference Range Comments DRVV SCREEN RATIO (BEAKER) 0.71 <1.20 (test jxwe=8025) DRVV INTERPRETATION (BEAKER) Negative screen for Lupus (test awql=7434) Anticoagulant PROTIME (BEAKER) (test 13.5 seconds 11.7-14.7 ielf=479) INR (BEAKER) (test xzxs=279) 1.0 <=5.9 PARTIAL THROMBOPLASTIN TIME 23.5 seconds 22.5-36.0 (BEAKER) (test upky=932) PTT-LA (BEAKER) (test 26.7 32.0-41.8 [id number]) [id number] (BEAKER) Irvin Henderson M.D. (test ngbp=3856) (electonic signature) ANTI-NUCLEAR ANTIBODY ([place])2017-09-18 10:00:00 Test Item Value Reference Range Comments ANTI-NUCLEAR ANTIBODY ([place]) (BEAKER) (test Positive Negative jaex=873) [place] TITER AND [id number] 10:00:00 Test Item Value Reference Range Comments [place] TITER (BEAKER) (test tmqh=7038) :160 [place] PATTERN (BEAKER) (test trqu=0320) Homogeneous URINE [id number] 10:24:00 Test Item Value Reference Range Comments CULTURE (BEAKER) (test >100,000 col/mL Same organism has rraa=4047) been isolated from cultures(s) of the same body site within 3 days. Repeat identification and susceptibility testing performed only after consultation with the clinical microbiology laboratory.Refer to previous culture ofKlebsiella pneumoniae URINE [id number] 09:32:00 Test Item Value Reference Range Comments CULTURE (BEAKER) (test skna=0049) Amikacin (test code=1) Ampicillin + Sulbactam (test code=6) Aztreonam (test code=32) Cefepime (test code=51) Cefoxitin (test code=68) Ceftazidime (test code=27) Ceftriaxone (test code=52) Ertapenem (test code=38) Gentamicin (test code=18) Levofloxacin (test code=22) Meropenem (test code=34) Nitrofurantoin (test code=23) Piperacillin + Tazobactam (test code=29) Tetracycline (test code=2) Tobramycin (test code=25) Trimethoprim + Sulfamethoxazole (test code=47) CULTURE (BEAKER) (test xplj=0885) >100,000 col/mL Klebsiella pneumoniae CBC W/PLT COUNT & AUTO [id number] 08:12:00 Test Item Value Reference Range Comments WHITE BLOOD CELL COUNT (BEAKER) (test ngkm=080) 4.9 K/ L 3.5-10.5 RED BLOOD CELL COUNT (BEAKER) (test hpvc=737) 4.08 M/ L 3.93-5.22 HEMOGLOBIN (BEAKER) (test sbkq=074) 11.9 GM/DL 11.2-15.7 HEMATOCRIT (BEAKER) (test rqed=717) 36.6 % 34.1-44.9 MEAN CORPUSCULAR VOLUME (BEAKER) (test qaby=287) 89.7 fL 79.4-94.8 MEAN CORPUSCULAR HEMOGLOBIN (BEAKER) (test 29.2 pg 25.6-32.2 dtra=028) MEAN CORPUSCULAR HEMOGLOBIN CONC (BEAKER) (test 32.5 GM/DL 32.2-35.5 slxr=650) RED CELL DISTRIBUTION WIDTH (BEAKER) (test 13.7 % 11.7-14.4 bbax=981) PLATELET COUNT (BEAKER) (test cstz=008) 221 K/CU MM 150-450 MEAN PLATELET VOLUME (BEAKER) (test orzm=102) 11.0 fL 9.4-12.3 NUCLEATED RED BLOOD CELLS (BEAKER) (test 0 /100 WBC 0-0 ifyb=754) NEUTROPHILS RELATIVE PERCENT (BEAKER) (test 47 % mvhs=861) LYMPHOCYTES RELATIVE PERCENT (BEAKER) (test 42 % tsrv=685) MONOCYTES RELATIVE PERCENT (BEAKER) (test 8 % ipoz=950) EOSINOPHILS RELATIVE PERCENT (BEAKER) (test 2 % wfuf=604) BASOPHILS RELATIVE PERCENT (BEAKER) (test 0 % skeu=331) NEUTROPHILS ABSOLUTE COUNT (BEAKER) (test 2.32 K/ L 1.56-6.13 hotn=635) LYMPHOCYTES ABSOLUTE COUNT (BEAKER) (test 2.04 K/ L 1.18-3.74 ekez=787) MONOCYTES ABSOLUTE COUNT (BEAKER) (test 0.41 K/ L 0.24-0.36 hgiu=251) EOSINOPHILS ABSOLUTE COUNT (BEAKER) (test 0.10 K/ L 0.04-0.36 ezue=824) BASOPHILS ABSOLUTE COUNT (BEAKER) (test 0.02 K/ L 0.01-0.08 vhhs=799) IMMATURE GRANULOCYTES-RELATIVE PERCENT (BEAKER) 0 % 0-1 (test jydm=6808) BASIC METABOLIC [id number] 08:08:00 Test Item Value Reference Range Comments SODIUM (BEAKER) (test 138 meq/L 136-145 rbny=887) POTASSIUM (BEAKER) (test 3.9 meq/L 3.5-5.1 kxll=454) CHLORIDE (BEAKER) (test 108 meq/L 98-107 rxwk=949) CO2 (BEAKER) (test 22 meq/L 22-29 gjmw=066) BLOOD UREA NITROGEN 10 mg/dL 7-21 (BEAKER) (test wmam=074) CREATININE (BEAKER) (test 0.71 mg/dL 0.57-1.25 weyi=783) GLUCOSE RANDOM (BEAKER) 84 mg/dL 70-105 (test djzj=634) CALCIUM (BEAKER) (test 8.5 mg/dL 8.4-10.2 jyeb=916) EGFR (BEAKER) (test mL/min/1.73 sq m INSUFFICIENT CLINICAL DATA uowh=7531) TO CALCULATE ESTIMATED GFR. CARDIOLIPIN ANTIBODIES, IGG AND [id number] 14:48:00 Test Item Value Reference Range Comments ANTICARDIOLIPIN IGG ANTIBODY (BEAKER) (test < GPL qifo=655) ANTICARDIOLIPIN IGM ANTIBODY (BEAKER) (test 1.8 MPL hrev=024) Anticardiolipin IgG Result Interpretation:NEG: <20 GPL; U/mlPOS: >/=20 GPL; U/mlAnticardiolipin IgM Result Interpretation:NEG: <20 MPL; U/mlPOS: >/=20 MPL; U/mlBASIC METABOLIC [id number] 04:53:00 Test Item Value Reference Range Comments SODIUM (BEAKER) (test 137 meq/L 136-145 fyld=509) POTASSIUM (BEAKER) (test 4.2 meq/L 3.5-5.1 cbbh=609) CHLORIDE (BEAKER) (test 111 meq/L 98-107 jgbh=900) CO2 (BEAKER) (test 20 meq/L 22-29 hwvb=582) BLOOD UREA NITROGEN 11 mg/dL 7-21 (BEAKER) (test uqxw=514) CREATININE (BEAKER) (test 0.67 mg/dL 0.57-1.25 zgpx=054) GLUCOSE RANDOM (BEAKER) 96 mg/dL 70-105 (test utoc=590) CALCIUM (BEAKER) (test 8.0 mg/dL 8.4-10.2 ozwz=881) EGFR (BEAKER) (test mL/min/1.73 sq m INSUFFICIENT CLINICAL DATA gnnd=9068) TO CALCULATE ESTIMATED GFR. HEPATIC FUNCTION [id number] 04:51:00 Test Item Value Reference Range Comments TOTAL PROTEIN (BEAKER) (test dvii=291) 6.1 gm/dL 6.0-8.3 ALBUMIN (BEAKER) (test rusq=4254) 3.1 g/dL 3.5-5.0 BILIRUBIN TOTAL (BEAKER) (test rwqm=221) 0.4 mg/dL 0.2-1.2 BILIRUBIN DIRECT (BEAKER) (test wqiv=289) 0.2 mg/dL 0.1-0.5 ALKALINE PHOSPHATASE (BEAKER) (test wlqa=444) 71 U/L 40-150 AST (SGOT) (BEAKER) (test ewoq=112) 13 U/L 5-34 ALT (SGPT) (BEAKER) (test rsiw=034) 11 U/L 6-55 CBC W/PLT COUNT & AUTO [id number] 04:11:00 Test Item Value Reference Range Comments WHITE BLOOD CELL COUNT (BEAKER) (test fizp=731) 5.6 K/ L 3.5-10.5 RED BLOOD CELL COUNT (BEAKER) (test twqw=525) 3.98 M/ L 3.93-5.22 HEMOGLOBIN (BEAKER) (test lpyi=278) 11.5 GM/DL 11.2-15.7 HEMATOCRIT (BEAKER) (test uvdf=866) 36.6 % 34.1-44.9 MEAN CORPUSCULAR VOLUME (BEAKER) (test xxsf=783) 92.0 fL 79.4-94.8 MEAN CORPUSCULAR HEMOGLOBIN (BEAKER) (test 28.9 pg 25.6-32.2 zdfg=859) MEAN CORPUSCULAR HEMOGLOBIN CONC (BEAKER) (test 31.4 GM/DL 32.2-35.5 xelb=887) RED CELL DISTRIBUTION WIDTH (BEAKER) (test 14.3 % 11.7-14.4 rxuc=131) PLATELET COUNT (BEAKER) (test rqax=534) 214 K/CU MM 150-450 MEAN PLATELET VOLUME (BEAKER) (test xqhx=445) 10.9 fL 9.4-12.3 NUCLEATED RED BLOOD CELLS (BEAKER) (test 0 /100 WBC 0-0 icos=267) NEUTROPHILS RELATIVE PERCENT (BEAKER) (test 51 % nogq=980) LYMPHOCYTES RELATIVE PERCENT (BEAKER) (test 39 % zwkb=787) MONOCYTES RELATIVE PERCENT (BEAKER) (test 8 % dxxb=541) EOSINOPHILS RELATIVE PERCENT (BEAKER) (test 2 % xmdd=583) BASOPHILS RELATIVE PERCENT (BEAKER) (test 0 % gqck=118) NEUTROPHILS ABSOLUTE COUNT (BEAKER) (test 2.81 K/ L 1.56-6.13 bbkm=632) LYMPHOCYTES ABSOLUTE COUNT (BEAKER) (test 2.16 K/ L 1.18-3.74 cbdq=013) MONOCYTES ABSOLUTE COUNT (BEAKER) (test 0.42 K/ L 0.24-0.36 ohjt=622) EOSINOPHILS ABSOLUTE COUNT (BEAKER) (test 0.13 K/ L 0.04-0.36 ciyj=255) BASOPHILS ABSOLUTE COUNT (BEAKER) (test 0.01 K/ L 0.01-0.08 kkgb=208) IMMATURE GRANULOCYTES-RELATIVE PERCENT (BEAKER) 0 % 0-1 (test mtfx=7415) URINALYSIS W/ [id number] 21:39:00 Test Item Value Reference Range Comments COLOR (BEAKER) (test nzpg=472) Light Yellow CLARITY (BEAKER) (test tsow=603) Hazy SPECIFIC GRAVITY UA (BEAKER) (test omxx=812) 1.009 1.001-1.035 PH UA (BEAKER) (test dypq=316) 6.0 5.0-8.0 PROTEIN UA (BEAKER) (test tcom=434) Negative Negative GLUCOSE UA (BEAKER) (test yldo=488) Negative Negative KETONES UA (BEAKER) (test yeto=306) Negative Negative BILIRUBIN UA (BEAKER) (test dtwu=571) Negative Negative BLOOD UA (BEAKER) (test eppj=316) Small Negative NITRITE UA (BEAKER) (test dwix=298) Negative Negative LEUKOCYTE ESTERASE UA (BEAKER) (test yzof=673) Large Negative UROBILINOGEN UA (BEAKER) (test kmei=458) 0.2 mg/dL 0.2-1.0 RBC UA (BEAKER) (test eiih=434) < /HPF WBC UA (BEAKER) (test vjsq=444) 16 /HPF SQUAMOUS EPITHELIAL (BEAKER) (test hwnp=148) 3 /HPF SOURCE(BEAKER) (test oyxy=4959) Urine, Voided MR, MRA, BRAIN, WITHOUT [id number] 19:51:00Reason for exam:->Stroke s /p tPAWhat is the patient's sedation requirement?->No SedationFINAL REPORT MRA Head CLINICAL HISTORY: Stroke s/p tPA TECHNIQUE: MRA of the head utilizing 3-D fzwj-lj-jwoacw technique, with 3-D reconstructions. COMPARISON: None FINDINGS: There is no evidence for a [place] proximal branch vessel occlusion. There is a 2 mm protuberance of the left posterior communicating artery segment for which an infundibulum versus aneurysm cannot be distinguished. IMPRESSION: No evidence for a major [place] proximal branch vessel occlusion. 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 MRA Neck CLINICAL HISTORY: Stroke s/p tPA TECHNIQUE: MRA of the neck utilizing 2-D and 3-D zkod-qi-lmhmgm technique, with 3-D reconstructions. COMPARISON: None FINDINGS: The carotid arteries in the neck are patent including their bifurcations. There is antegrade flow in the vertebral arteries in the neck. There is left vertebral dominance. IMPRESSION: No evidence of hemodynamically significant stenosis in the cervical carotid or vertebral arteries by NASCET criteria. Signed: Ike Renteria Verified Date/Time: 09/13/2017 19:51:37 Reading Location: [facility] Radiology Reading Room MR, MRA, NECK, WITHOUT IV [id number] 19:51:00FINAL REPORT MRA Head CLINICAL HISTORY: Stroke s/p tPA TECHNIQUE: MRA of the head utilizing 3-D hiyp-oa-mnsdfu technique, with 3-D reconstructions. COMPARISON: None FINDINGS: There is no evidence for a [place] proximal branch vessel occlusion. There is a 2 mm protuberance of the left posterior communicating artery segment for which an infundibulum versus aneurysm cannot be distinguished. IMPRESSION: No evidence for a major [place] proximal branch vessel occlusion. 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 MRA Neck CLINICAL HISTORY: Stroke s/p tPA TECHNIQUE: MRA of the neck utilizing 2-D and 3-D begg-vw-xjrpma technique, with 3-D reconstructions. COMPARISON: None FINDINGS: The carotid arteries in the neck are patent including their bifurcations. There is antegrade flow in the vertebral arteries in the neck. There is left vertebral dominance. IMPRESSION: No evidence of hemodynamically significant stenosis in the cervical carotid or vertebral arteries by NASCET criteria. Signed: Renteria, Ike MDReport Verified Date/Time: 09/13/2017 19:51:37 Reading Location: [facility] Radiology Reading Room MR, BRAIN, WITHOUT [id number] 18:13:00Reason for exam:-> Stroke s/p tPAWhat is [...] Verified Date/Time: 09/13/2017 18:13 :57 Reading Location: [facility] Radiology Reading Room [id number] 12: 47:00 Test Item Value Reference Range Comments HOMOCYSTEINE (BEAKER) (test yzya=332) 6.7 umol/L 5.1-15.4 TROPONIN [id number] 09:59:00 Test Item Value Reference Range Comments TROPONIN I (BEAKER) (test pygy=948) < ng/mL 0.00-0.03 Troponin I (TnI) levels [...] acute neurological disease, and persistent tachyarrhythmia.URINALYSIS W/ [id number] 05: 52:00 Test Item Value Reference Range Comments COLOR (BEAKER) (test wuja=703) Light Yellow CLARITY (BEAKER) (test agkj=699) Hazy SPECIFIC GRAVITY UA (BEAKER) (test mrmj=414) 1.007 1.001-1.035 PH UA (BEAKER) (test sgbm=672) 7.0 5.0-8.0 PROTEIN UA (BEAKER) (test ywvn=495) Negative Negative GLUCOSE UA (BEAKER) (test sbcb=768) Negative Negative KETONES UA (BEAKER) (test kfov=873) Negative Negative BILIRUBIN UA (BEAKER) (test erbz=473) Negative Negative BLOOD UA (BEAKER) (test alfc=477) Moderate Negative NITRITE UA (BEAKER) (test sdne=597) Positive Negative LEUKOCYTE ESTERASE UA (BEAKER) (test tnyz=558) Large Negative UROBILINOGEN UA (BEAKER) (test syrh=774) 0.2 mg/dL 0.2-1.0 RBC UA (BEAKER) (test iblc=613) 3 /HPF WBC UA (BEAKER) (test pnmi=907) 5 /HPF BACTERIA (BEAKER) (test qnjm=532) Moderate MUCUS (BEAKER) (test zxlq=8582) Occasional SQUAMOUS EPITHELIAL (BEAKER) (test fysj=607) 5 /HPF AMORPHOUS CRYSTALS (BEAKER) (test pcbq=4280) Rare SOURCE(BEAKER) (test zcuj=6255) Urine, Voided HEMOGLOBIN [id number] 05:17:00 Test Item Value Reference Range Comments HEMOGLOBIN A1C (BEAKER) (test japa=018) 5.6 % 4.3-6.1 BASIC METABOLIC [id number] 04:24:00 Test Item Value Reference Range Comments SODIUM (BEAKER) (test 137 meq/L 136-145 ptrc=277) POTASSIUM (BEAKER) (test 4.3 meq/L 3.5-5.1 Specimen slightly mgvh=050) hemolyzed CHLORIDE (BEAKER) (test 108 meq/L 98-107 uvvs=214) CO2 (BEAKER) (test 22 meq/L 22-29 tuhu=579) BLOOD UREA NITROGEN 9 mg/dL 7-21 (BEAKER) (test sbhm=157) CREATININE (BEAKER) (test 0.65 mg/dL 0.57-1.25 Specimen slightly rakn=583) hemolyzed GLUCOSE RANDOM (BEAKER) 93 mg/dL 70-105 (test wjcw=865) CALCIUM (BEAKER) (test 8.2 mg/dL 8.4-10.2 ukvv=327) EGFR (BEAKER) (test mL/min/1.73 sq m INSUFFICIENT CLINICAL DATA txml=8476) TO CALCULATE ESTIMATED GFR. FastingLIPID [id number] 04:22:00 Test Item Value Reference Range Comments TRIGLYCERIDES (BEAKER) (test 93 mg/dL Specimen slightly hemolyzed uxkv=846) CHOLESTEROL (BEAKER) (test 178 mg/dL Specimen slightly hemolyzed jyct=439) HDL CHOLESTEROL (BEAKER) (test 49 mg/dL jftx=447) LDL CHOLESTEROL CALCULATED 110 mg/dL (BEAKER) (test yjeu=740) Triglyceride Reference Range: Low Risk <150 Borderline 150- 199 High Risk 200-499 Very High Risk >=500Cholesterol Reference Range: Low Risk <200 Borderline 200-239 High Risk > 240HDL Cholesterol Reference Range: Low Risk >=60 High Risk <40LDL Cholesterol Reference Range: Optimal <100 Near Optimal 100-129 Borderline 130-159 High 160-189 Very High >=190 FastingCBC W/PLT COUNT & AUTO [id number] 04:07:00 Test Item Value Reference Range Comments WHITE BLOOD CELL COUNT (BEAKER) (test zxbr=672) 6.4 K/ L 3.5-10.5 RED BLOOD CELL COUNT (BEAKER) (test iprs=695) 4.00 M/ L 3.93-5.22 HEMOGLOBIN (BEAKER) (test tsht=670) 11.5 GM/DL 11.2-15.7 HEMATOCRIT (BEAKER) (test uxpc=390) 35.3 % 34.1-44.9 MEAN CORPUSCULAR VOLUME (BEAKER) (test agto=723) 88.3 fL 79.4-94.8 MEAN CORPUSCULAR HEMOGLOBIN (BEAKER) (test 28.8 pg 25.6-32.2 obax=989) MEAN CORPUSCULAR HEMOGLOBIN CONC (BEAKER) (test 32.6 GM/DL 32.2-35.5 gzpj=209) RED CELL DISTRIBUTION WIDTH (BEAKER) (test 13.8 % 11.7-14.4 smrf=870) PLATELET COUNT (BEAKER) (test evxi=393) 236 K/CU MM 150-450 MEAN PLATELET VOLUME (BEAKER) (test utmo=473) 10.8 fL 9.4-12.3 NUCLEATED RED BLOOD CELLS (BEAKER) (test 0 /100 WBC 0-0 affm=929) NEUTROPHILS RELATIVE PERCENT (BEAKER) (test 58 % zmzm=246) LYMPHOCYTES RELATIVE PERCENT (BEAKER) (test 33 % exux=638) MONOCYTES RELATIVE PERCENT (BEAKER) (test 8 % rvyo=427) EOSINOPHILS RELATIVE PERCENT (BEAKER) (test 1 % xvbm=933) BASOPHILS RELATIVE PERCENT (BEAKER) (test 0 % uchx=795) NEUTROPHILS ABSOLUTE COUNT (BEAKER) (test 3.70 K/ L 1.56-6.13 uqac=365) LYMPHOCYTES ABSOLUTE COUNT (BEAKER) (test 2.07 K/ L 1.18-3.74 lqsn=895) MONOCYTES ABSOLUTE COUNT (BEAKER) (test 0.51 K/ L 0.24-0.36 czbe=352) EOSINOPHILS ABSOLUTE COUNT (BEAKER) (test 0.06 K/ L 0.04-0.36 mhni=438) BASOPHILS ABSOLUTE COUNT (BEAKER) (test 0.02 K/ L 0.01-0.08 asta=843) IMMATURE GRANULOCYTES-RELATIVE PERCENT (BEAKER) 0 % 0-1 (test hjve=5366) TSH/FREE T4 IF [id number] 02:20:00 Test Item Value Reference Range Comments THYROID STIMULATING HORMONE (BEAKER) (test 1.31 uIU/mL 0.35-4.94 qjyx=703) VITAMIN B12 AND [id number] 02:20:00 Test Item Value Reference Range Comments VITAMIN B12 (BEAKER) (test ergn=764) 166 pg/mL 213-816 FOLATE (BEAKER) (test bdqu=131) 12.0 ng/mL >=7.0 TROPONIN [id number] 01:53:00 Test Item Value Reference Range Comments TROPONIN I (BEAKER) (test bybg=811) < ng/mL 0.00-0.03 Troponin I (TnI) levels [...] acute neurological disease, and persistent tachyarrhythmia.BASIC METABOLIC [id number] 01:53:00 Test Item Value Reference Range Comments SODIUM (BEAKER) (test 139 meq/L 136-145 spkc=619) POTASSIUM (BEAKER) (test 4.1 meq/L 3.5-5.1 fmug=299) CHLORIDE (BEAKER) (test 108 meq/L 98-107 pnrk=524) CO2 (BEAKER) (test 22 meq/L 22-29 rioo=069) BLOOD UREA NITROGEN 10 mg/dL 7-21 (BEAKER) (test phzp=274) CREATININE (BEAKER) (test 0.67 mg/dL 0.57-1.25 eklt=914) GLUCOSE RANDOM (BEAKER) 101 mg/dL 70-105 (test qdkc=795) CALCIUM (BEAKER) (test 8.5 mg/dL 8.4-10.2 sgng=430) EGFR (BEAKER) (test mL/min/1.73 sq m INSUFFICIENT CLINICAL DATA uwwh=5452) TO CALCULATE ESTIMATED GFR. CBC W/PLT COUNT & AUTO [id number] 01:28:00 Test Item Value Reference Range Comments WHITE BLOOD CELL COUNT (BEAKER) (test ladh=762) 7.0 K/ L 3.5-10.5 RED BLOOD CELL COUNT (BEAKER) (test ctoq=947) 4.13 M/ L 3.93-5.22 HEMOGLOBIN (BEAKER) (test dein=288) 12.0 GM/DL 11.2-15.7 HEMATOCRIT (BEAKER) (test afnv=204) 36.6 % 34.1-44.9 MEAN CORPUSCULAR VOLUME (BEAKER) (test coqq=383) 88.6 fL 79.4-94.8 MEAN CORPUSCULAR HEMOGLOBIN (BEAKER) (test 29.1 pg 25.6-32.2 sdrk=729) MEAN CORPUSCULAR HEMOGLOBIN CONC (BEAKER) (test 32.8 GM/DL 32.2-35.5 utbq=342) RED CELL DISTRIBUTION WIDTH (BEAKER) (test 13.8 % 11.7-14.4 yano=658) PLATELET COUNT (BEAKER) (test iwni=034) 225 K/CU MM 150-450 MEAN PLATELET VOLUME (BEAKER) (test rmyg=041) 11.0 fL 9.4-12.3 NUCLEATED RED BLOOD CELLS (BEAKER) (test 0 /100 WBC 0-0 zbzn=616) NEUTROPHILS RELATIVE PERCENT (BEAKER) (test 65 % sdqr=934) LYMPHOCYTES RELATIVE PERCENT (BEAKER) (test 27 % ufwe=061) MONOCYTES RELATIVE PERCENT (BEAKER) (test 7 % bnic=543) EOSINOPHILS RELATIVE PERCENT (BEAKER) (test 1 % mnmq=286) BASOPHILS RELATIVE PERCENT (BEAKER) (test 0 % tvug=327) NEUTROPHILS ABSOLUTE COUNT (BEAKER) (test 4.51 K/ L 1.56-6.13 ssbh=309) LYMPHOCYTES ABSOLUTE COUNT (BEAKER) (test 1.91 K/ L 1.18-3.74 vaaa=505) MONOCYTES ABSOLUTE COUNT (BEAKER) (test 0.45 K/ L 0.24-0.36 ohim=250) EOSINOPHILS ABSOLUTE COUNT (BEAKER) (test 0.06 K/ L 0.04-0.36 hmpa=529) BASOPHILS ABSOLUTE COUNT (BEAKER) (test 0.02 K/ L 0.01-0.08 drpy=179) IMMATURE GRANULOCYTES-RELATIVE PERCENT (BEAKER) 0 % 0-1 (test gwfr=4814)
[2018-09-19 20:25] LABS: Absolute Lymphocytes (CBC) 0.3 K/uL (0.7-4.9); Absolute Monocytes 0.4 K/uL (0.1-1.3); Absolute Neutrophil 2.1 K/uL (1.8-8.0); Basophils % 0.3 % (0-1.3); Eosinophils % 0.5 % (0-4.4); Hematocrit 35.3 % (36.0-45.0); Lymphocytes % 9.9 % (15.3-44.8); MPV 8.7 fL (7.6-11.3); Monocytes % 13.1 % (3.3-12.3); RBC Red Blood Cell Count 4.14 M/uL (3.86-4.86)
--- NOTE | 2018-09-19 20:44 | RAD REPORT ---
EXAM DESCRIPTION: Rosy Single View09/19/2018 8:19 pm CLINICAL HISTORY: Chest pain COMPARISON: June 2018 FINDINGS: The lungs appear clear of acute infiltrate. The heart is normal size IMPRESSION: No acute abnormalities displayed
[2018-09-19 20:45] LABS: ALT/SGPT 30 U/L (12-78); AST/SGOT 33 U/L (15-37); Albumin 2.9 g/dL (3.4-5.0); Alkaline Phosphatase 77 U/L (45-117); BUN Blood Urea Nitrogen 9 mg/dL (7-18); Bicarbonate 23 mmol/L (21-32); Bilirubin Direct < 0.1 mg/dL (0-0.2); Bilirubin Total 0.2 mg/dL (0.2-1.0); Glucose Level 159 mg/dL (74-106); Magnesium 1.8 mg/dL (1.8-2.4); NT PRO-BNP 99 pg/mL (<125); Potassium 3.3 mmol/L (3.5-5.1); Protein, Total 6.7 g/dL (6.4-8.2); Sodium Level 142 mmol/L (136-145); Troponin (Emerg Dept Use Only) < 0.02 ng/mL (0.0-0.045)
[2018-09-19 20:59] LABS: Blood Morphology Comment NOT SEEN (NOT SEEN); Platelet Estimate ADEQ; Urine White Blood Cell Casts OK
--- NOTE | 2018-09-19 21:58 | EDPHYS ---
Physician Documentation [facility] Name: Anjelica Grover Age: 48 yrs Sex: Female : 1970 Arrival Date: 09/19/2018 Time: 19:30 Bed 24 Private MD: ED Physician Dev Palumbo HPI: 09/19 20:04 This 48 yrs old Female presents to ER via Wheelchair with complaints of Chest ps1 Pain. 20:04 patient states onset of pain was this morning localized to the chest and her joints as ps1 well as palpitations. She was recently taken off of a holter monitor per Jon. Hx of remote stroke x2 that affected her left side. She is able to move with FROM. Says her pain is rated as moderate. No remitting factors. Nothing tried. . 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 - Social history:: Smoking status: Patient/guardian denies using tobacco. - Ebola Screening: : No symptoms or risks identified at this time. ROS: 20:04 Constitutional: Negative for fever, chills, and weight loss, Eyes: Negative for injury, ps1 pain, redness, and discharge, Respiratory: Negative for shortness of breath, cough, wheezing, and pleuritic chest pain, Abdomen/GI: Negative for abdominal pain, nausea, vomiting, diarrhea, and constipation, Back: Negative for injury and pain, MS/Extremity: Negative for injury and deformity, Skin: Negative for injury, rash, and discoloration. 20:04 Cardiovascular: Positive for chest pain, palpitations. Exam: 20:04 Constitutional: This is a well developed, well nourished patient who is awake, alert, ps1 and in no acute distress. Head/Face: Normocephalic, atraumatic. Eyes: Pupils equal round and reactive to light, extra-ocular motions intact. Lids and lashes normal. Conjunctiva and sclera are non-icteric and not injected. Chest/axilla: Normal chest wall appearance and motion. Nontender with no deformity. No lesions are appreciated. Respiratory: Lungs have equal breath sounds bilaterally, clear to auscultation and percussion. No rales, rhonchi or wheezes noted. No increased work of breathing, no retractions or nasal flaring. Abdomen/GI: Soft, non-tender, with normal bowel sounds. No distension or tympany. No guarding or rebound. No evidence of tenderness throughout. MS/ Extremity: Pulses equal, no cyanosis. Neurovascular intact. Full, normal range of motion. Neuro: Awake and alert, GCS 15, oriented to person, place, time, and situation. Cranial nerves II-XII grossly intact. Sensory grossly intact. Psych: Awake, alert, with orientation to person, place and time. Behavior, mood, and affect are within normal limits. 20:04 Cardiovascular: Rate: tachycardic, Rhythm: regular, Pulses: no pulse deficits are appreciated. Vital Signs: 19:49 BP 135 / 81; Pulse 119; Resp 18; Temp 98.2; Pulse Ox 100% on R/A; Weight 61.23 kg; ca1 Height 5 ft. 3 in. (160.02 cm); Pain 6/10; 20:31 BP 116 / 70; Pulse 105; Resp 21; Pulse Ox 99% on R/A; ca1 21:30 BP 126 / 77; Pulse 102; Resp 19; Pulse Ox 99% on R/A; ca1 22:36 BP 122 / 62; Pulse 94; Resp 19; Pulse Ox 100% on R/A; ca1 23:35 BP 131 / 55; Pulse 101; Resp 19; Pulse Ox 100% on R/A; ca1 19:49 Body Mass Index 23.91 (61.23 kg, 160.02 cm) ca1 MDM: 19:52 Patient medically screened. ps1 09/19 20:01 Order name: Basic Metabolic Panel; Complete Time: 20:50 ps1 09/19 20:01 Order name: CBC with Diff; Complete Time: 21:17 ps1 09/19 20:01 Order name: LFT's; Complete Time: 20:50 ps1 09/19 20:01 Order name: Magnesium; Complete Time: 20:50 ps1 09/19 20:01 Order name: NT PRO-BNP; Complete Time: 20:50 ps1 09/19 20:01 Order name: Troponin (emerg Dept Use Only); Complete Time: 20:50 ps1 09/19 20:01 Order name: XRAY Chest (1 view); Complete Time: 20:50 ps1 09/19 20:01 Order name: EKG; Complete Time: 20:02 ps1 09/19 20:01 Order name: Cardiac monitoring; Complete Time: 20:17 ps1 09/19 20:01 Order name: EKG - Nurse/Tech; Complete Time: 20:17 ps1 09/19 20:01 Order name: IV Saline Lock; Complete Time: 20:17 ps1 09/19 20:01 Order name: Labs collected and sent; Complete Time: 20:17 ps1 09/19 20:59 Order name: CBC Smear Scan; Complete Time: 21:17 EDDC 09/19 21:49 Order name: Urine Dipstick--Ancillary (enter results); Complete Time: 22:44 mw2 09/19 20:01 Order name: O2 Per Protocol; Complete Time: 20:17 ps1 09/19 20:01 Order name: O2 Sat Monitoring; Complete Time: 20:17 ps1 EC:57 Rate is 111 beats/min. Rhythm is regular. QRS [place] is Normal. TX interval is normal. ps1 QRS interval is normal. QT interval is normal. No Q waves. T waves are Normal. No ST changes noted. Clinical impression: Normal ECG. Administered Medications: No medications were administered Disposition: 09/19/18 21:58 Hospitalization ordered by Shabana Lopez for Observation. Preliminary diagnosis is Chest pain. - Bed requested for Telemetry/MedSurg (observation). - Status is Observation. ca1 - Condition is Stable. - Problem is new. - Symptoms are unchanged. UTI on Admission? No Signatures: Dispatcher [employer] Yamilet Lynn RN RN cg Dev Palumbo MD MD ps1 Adamaris Harmon RN RN ca1 Corrections: (The following items were deleted from the chart) 23:21 21:58 Hospitalization Ordered by Shabana Lopez MD for Observation. Preliminary cg diagnosis is Chest pain. Bed requested for Telemetry/MedSurg (observation). Status is Observation. Condition is Stable. Problem is new. Symptoms are unchanged. UTI on Admission? No. ps1 09/20 00:26 09/19 23:21 09/19/2018 21:58 Hospitalization Ordered by Shabana Lopez MD for ca1 Observation. Preliminary diagnosis is Chest pain. Bed requested for Telemetry/MedSurg (observation). Status is Observation. Condition is Stable. Problem is new. Symptoms are unchanged. UTI on Admission? No. cg
--- NOTE | 2018-09-19 21:58 | ER ---
Nurse's Notes [facility] Name: Anjelica Grover Age: 48 yrs Sex: Female : 1970 Arrival Date: 09/19/2018 Time: 19:30 Bed 24 Private MD: Diagnosis: Chest pain Presentation: 09/19 19:40 Presenting complaint: Patient states: L chest pain that started this morning. Started ca1 with a headache and joint pains. Transition of care: patient was not received from another setting of care. Onset of symptoms was September 19, 2018. Risk Assessment: Do you want to hurt yourself or someone else? Patient reports no desire to harm self or others. Initial Sepsis Screen: Does the patient meet any 2 criteria? No. Patient's initial sepsis screen is negative. Does the patient have a suspected source of infection? No. Patient's initial sepsis screen is negative. Care prior to arrival: None. 19:40 Method Of Arrival: Wheelchair ca1 19:40 Acuity: CHAN 3 ca1 Triage Assessment: 19:49 General: Appears in no apparent distress. uncomfortable, Behavior is calm, cooperative, ca1 appropriate for age. Pain: Complains of pain in anterior aspect of left upper chest Pain does not radiate. Pain currently is 6 out of 10 on a pain scale. Quality of pain is described as pressure, Pain began gradually. Cardiovascular: Heart tones S1 S2 Capillary refill < 3 seconds Patient's skin is warm and dry. Rhythm is sinus tachycardia. 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 - Social history:: Smoking status: Patient/guardian denies using tobacco. - Ebola Screening: : No symptoms or risks identified at this time. Screenin:40 Abuse screen: Denies threats or abuse. Denies injuries from another. Nutritional ca1 screening: No deficits noted. Tuberculosis screening: No symptoms or risk factors identified. Fall Risk IV access (20 points). Assessment: 19:40 General: Appears in no apparent distress. uncomfortable, Behavior is calm, cooperative, ca1 appropriate for age. Pain: Complains of pain in anterior aspect of left upper chest Pain does not radiate. Pain currently is 6 out of 10 on a pain scale. Quality of pain is described as pressure, Pain began gradually. Neuro: Level of Consciousness is awake, alert, obeys commands, Oriented to person, place, time, situation. Neuro: Reports headache. Cardiovascular: Heart tones S1 S2 present Capillary refill < 3 seconds Patient's skin is warm and dry. Rhythm is sinus tachycardia. Respiratory: Airway is patent Respiratory effort is even, unlabored, Respiratory pattern is regular, symmetrical, Breath sounds are clear bilaterally. GI: Abdomen is flat, non-distended, Bowel sounds present X 4 quads. : No signs and/or symptoms were reported regarding the genitourinary system. EENT: No signs and/or symptoms were reported regarding the EENT system. Derm: Skin is intact, is healthy with good turgor, Skin is pink, warm \T\ dry. Musculoskeletal: Circulation, motion, and sensation intact. Capillary refill < 3 seconds. 20:31 Reassessment: Patient appears in no apparent distress at this time. Patient and/or ca1 family updated on plan of care and expected duration. Pain level reassessed. Patient is alert, oriented x 3, equal unlabored respirations, skin warm/dry/pink. 21:30 Reassessment: Patient appears in no apparent distress at this time. Patient and/or ca1 family updated on plan of care and expected duration. Pain level reassessed. Patient is alert, oriented x 3, equal unlabored respirations, skin warm/dry/pink. States pain is reduced. 22:36 Reassessment: Patient appears in no apparent distress at this time. Patient and/or ca1 family updated on plan of care and expected duration. Pain level reassessed. Patient is alert, oriented x 3, equal unlabored respirations, skin warm/dry/pink. Awaiting room assignment. 23:35 Reassessment: Patient appears in no apparent distress at this time. Patient and/or ca1 family updated on plan of care and expected duration. Pain level reassessed. Patient is alert, oriented x 3, equal unlabored respirations, skin warm/dry/pink. Vital Signs: 19:49 BP 135 / 81; Pulse 119; Resp 18; Temp 98.2; Pulse Ox 100% on R/A; Weight 61.23 kg; ca1 Height 5 ft. 3 in. (160.02 cm); Pain 6/10; 20:31 BP 116 / 70; Pulse 105; Resp 21; Pulse Ox 99% on R/A; ca1 21:30 BP 126 / 77; Pulse 102; Resp 19; Pulse Ox 99% on R/A; ca1 22:36 BP 122 / 62; Pulse 94; Resp 19; Pulse Ox 100% on R/A; ca1 23:35 BP 131 / 55; Pulse 101; Resp 19; Pulse Ox 100% on R/A; ca1 19:49 Body Mass Index 23.91 (61.23 kg, 160.02 cm) ca1 ED Course: 19:30 Patient arrived in ED. ag3 19:42 Adamaris Harmon, LATIA is Primary Nurse. ca1 19:42 Dev Palumbo MD is Attending Physician. ps1 19:44 Triage completed. ca1 19:49 Arm band placed on. Arm band placed on right wrist. EKG completed in triage. Results ca1 shown to MD. EKG completed in triage. Results shown to MD. 19:50 Patient has correct armband on for positive identification. Placed in gown. Bed in low ca1 position. Call light in reach. Side rails up X 1. personnel monitor on. Pulse ox on. NIBP on. Warm blanket given. 20:15 Inserted saline lock: 22 gauge in right upper arm, using aseptic technique. Blood ca1 collected. 20:15 No provider procedures requiring assistance completed. Patient maintains SpO2 ca1 saturation greater than 95% on room air. 20:19 XRAY Chest (1 view) In Process Unspecified. EDMS 20:20 X-ray completed. Portable x-ray completed in exam room. Patient tolerated procedure ls3 well. 21:57 Shabana Lopez MD is Hospitalizing Provider. ps1 23:42 Patient admitted, IV remains in place. ca1 Administered Medications: No medications were administered Outcome: 21:58 Decision to Hospitalize by Provider. ps1 23:48 Admitted to Tele accompanied by kaylene family with patient, via wheelchair, room 427, ca1 Report called to Halina Hanks RN 23:48 Condition: stable 23:48 Instructed on the need for admit. 09/20 00:26 Patient left the ED. ca1 Signatures: Dispatcher [employer] EDMS Dev Palumbo MD MD ps1 Jimmy Adams ls3 Che Clement ag3 Adamaris Harmon RN RN ca1 Corrections: (The following items were deleted from the chart) 09/19 20:23 19:40 Patient has correct armband on for positive identification. Placed in gown. Bed ca1 in low position. Call light in reach. Side rails up X 1. ca1 :23 19:40 personnel monitor on. Pulse ox on. NIBP on. ca1 ca1 20:23 19:40 Warm blanket given. ca1 ca1 23:36 22:36 Reassessment: Patient appears in no apparent distress at this time. Patient ca1 and/or family updated on plan of care and expected duration. Pain level reassessed. Patient is alert, oriented x 3, equal unlabored respirations, skin warm/dry/pink. ca1
[2018-09-19 22:09] LABS: Urine Blood 1+ (NEG); Urine Glucose NEGATIVE (NEG); Urine Protein NEGATIVE (NEG); Urine Specific Gravity <1.005 (1.005-1.030); Urine pH 5.5 (5.0-7.0)
--- NOTE | 2018-09-19 23:17 | P.HP ---
Certification for Inpatient Patient admitted to: Observation With expected LOS: <2 Midnights Practitioner: I am a practitioner with admitting privileges, knowledge of patient current condition, hospital course, and medical plan of care. Services: Services provided to patient in accordance with Admission requirements found in Title 42 Section 412.3 of the Code of Federal Regulations Patient History Date of Service: 09/19/18 Reason for admission: chest pain History of Present Illness: Ms Grover is a 48 years old woman with history of arthritis, tachycardia episodes , S/P loop recorder monitor, pending result, followed up by Dr Webb, who came to ED complaining of chest pain. The pain started this evening around 7:00 PM. She describe a retrosternal pressure like chest pain, 8/10 of intensity, lasting about 3 hours, associated with SOB, worsening with breathing movements. She denied nausea, vomiting or diaphoretic episodes. Early this morning she had palpitations due to tachycardia, already resolved. Lab work shows normal trop I , EKG SR at 100 bpm, with non-specific T wave abnormalities. Allergies hydrocodone [Hydrocodone] Allergy (Intermediate, Verified 06/05/14 22:40) Nausea/Vomiting codeine Allergy (Verified 08/29/17 06:13) Unknown Hydrocodone-Acetaminophen Allergy (Uncoded 06/27/14 20:30) Unknown Home Medications: Dicyclomine [Bentyl] 10 mg PO BIDWM 08/28/17 Docusate [Colace Cap] 200 mg PO DAILY 08/28/17 Entecavir 0.5 mg PO DAILY 08/28/17 Metoprolol Succinate [Toprol Xl] 100 mg PO DAILY 08/28/17 Naproxen [Naprosyn] 500 mg PO BIDWM 08/28/17 - Past Medical/Surgical History Diabetic: No -: Supraventricular tachycardia -: Hypertension -: GERD -: Irritable bowel -: tachycardia -: Psychosocial/ Personal History: The patient is . She has 4 children. She does not work. - Family History Father -: Other (see notes) Notes: no communication with family for past 8 years- not aware of their health history- family lives in [place] - Social History Smoking Status: Never smoker Alcohol use: No CD- Drugs: No Caffeine use: Yes Place of Residence: Home Review of Systems 10-point ROS is otherwise unremarkable Physical Examination - Physical Exam General: Alert, In no apparent distress HEENT: Atraumatic, PERRLA, Mucous membr. moist/pink, EOMI, Sclerae nonicteric Neck: Supple, 2+ carotid pulse no bruit, No LAD, Without JVD or thyroid abnormality Respiratory: Clear to auscultation bilaterally, Normal air movement Cardiovascular: Regular rate/rhythm, Normal S1 S2 Gastrointestinal: Normal bowel sounds, No tenderness Musculoskeletal: No tenderness Integumentary: No rashes Neurological: Normal gait, Normal speech, Normal strength at 5/5 x4 extr, Normal tone, Normal affect Lymphatics: No axilla or inguinal lymphadenopathy - Studies Laboratory Data (last 24 hrs) 09/19/18 20:14: WBC 2.7 L, Hgb 11.5 L, Hct 35.3 L, Plt Count 184 09/19/18 20:14: Sodium 142, Potassium 3.3 L, BUN 9, Creatinine 0.70, Glucose 159 H, Magnesium 1.8, Total Bilirubin 0.2, AST 33, ALT 30, Alkaline Phosphatase 77 Assessment and Plan - Problems (Diagnosis) (1) Chest pain Onset Date: 06/06/14 Current Visit: No Status: Acute Qualifiers: Chest pain type: precordial pain Qualified Code(s): R07.2 - Precordial pain (2) Palpitations Onset Date: 08/29/17 Current Visit: No Status: Acute (3) Hypertension Onset Date: 08/29/17 Current Visit: No Status: Chronic Qualifiers: Hypertension type: essential hypertension Qualified Code(s): I10 - Essential (primary) hypertension (4) Anxiety Onset Date: 08/29/17 Current Visit: No Status: Suspected - Plan The patient will be admitted to the hospital due to chest pain. Initial trop I negative, EKG shows no acute ST-T abnormalities. Will order serial cardiac enzymes and EKG, ECHO, cardiology consult. - Advance Directives Does patient have a Living Will: No Does patient have a Durable POA for Healthcare: No - Code Status/Comfort Care Code Status Assessed: Yes Code Status: Full Code
[2018-09-20] MEDS: ACETAMINOPHEN 500 MG TAB PO PRN ×3 (01:35→09:56)
[2018-09-20 03:36] VITALS: BMI 25.3
--- NOTE | 2018-09-20 05:53 | EKG ---
Test Date: 2018-09-19 Test Time: 19:57:59 Supervisor Dehydrogenation: CHELSEA MEASUREMENT RESULTS: Intervals: Rate: 111 AR: 118 QRSD: 84 QT: 350 QTc: 476 Godley: P: 53 AR: 118 QRS: 75 T: 5 INTERPRETIVE STATEMENTS: Sinus tachycardia Nonspecific T wave abnormality Abnormal ECG Compared to ECG 06/27/2018 12:07:35 T-wave abnormality now present Sinus rhythm no longer present Electronically Signed On 09-20-18 05:53:17 DAIRY EQUIPMENT SPECIALIST by Ajay Webb
[2018-09-20] MEDS ORDERED: ENOXAPARIN 40 MG/0.4 ML SQ SCH (09:00)
[2018-09-20] MEDS ORDERED: ASPIRIN EC 81 MG TAB PO SCH (09:00)
[2018-09-20 10:10] VITALS: TEMP 97.6
--- NOTE | 2018-09-20 10:18 | CON ---
Date of Consultation: 09/20/2018 The patient was admitted to Dr. Warren's service on 09/19/2018. I saw the patient on 09/20/2018. Reason For Consultation: Palpitations and chest pain. History Of Present Illness: Ms. Grover is 48 years old. She is very well known to us from office visi t and hospital visit. Had a Holter monitor, the results of which is still pending. She has a histor y of SVT, has been recommended to have an ablation, but has not done it yet. She has a history of CV A, hypertension, is status post left nephrectomy. Has palpitations and chest pain that was sharp, st abbing, left-sided. No nausea, vomiting, diaphoresis, PND, orthopnea, pedal edema, or syncope. Her chest x-ray is negative. EKG shows sinus tachycardia. Echocardiogram in 2018 was normal. Potassium was 3.3, glucose was 159. Allergies: SHE IS ALLERGIC TO CODEINE. Review of Systems: Negative. Social History: Negative. Family History: Negative. Medications: Include metoprolol, aspirin, Lipitor, and she also takes entecavir for hepatitis. Physical Examination: Vital Signs: Stable. Afebrile. In sinus rhythm. HEENT: Negative. Neck: Supple with no bruit. Chest: Clear to auscultation and percussion. Cardiac: Revealed a regular rhythm and rate without murmurs, gallops, or rubs. Abdomen: Benign. Extremities: Revealed no clubbing, cyanosis, or edema. Diagnostic Data: As stated earlier. Impression And Plan: Atypical chest pain, musculoskeletal, may be secondary to palpations, possibly supraventricular tachycardia, this has resolved now. Her potassium is 3.3, and that needs to be tom ected. An echocardiogram in 2018 was quite normal. Another echocardiogram is pending today. I am p retty sure Ms. Grover has had a stress test before in the office, and I will check the office records p steve to making final decision. If the echocardiogram is normal, I think she can go home. She should probably double her metoprolol dose. Supraventricular tachycardia ablation is still recommended. H er other significant problems include dyslipidemia, controlled on Lipitor, status post left nephrecto my, hypertension, well controlled, and cerebrovascular accident that has resolved. NB/MODL Voice ID: [id number] Report ID: [id number]
[2018-09-20] MEDS ORDERED: METOPROLOL XL 50 MG TAB PO SCH (10:19)
[2018-09-20] MEDS ORDERED: IBUPROFEN 200 MG TAB PO PRN (10:19)
--- NOTE | 2018-09-20 13:30 | ECHO ---
HEIGHT: 5 ft 3 in WEIGHT: 142 lb 14.4 oz DATE OF STUDY: 09/20/[address]: Shabana Mariscal MD 2-DIMENSIONAL: YES M.MODE: YES DOPPLER: YES COLOR FLOW: YES TDS: NO PORTABLE: NO DEFINITY: NO BUBBLE STUDY: NO DIAGNOSIS: CHEST PAIN, TACHYCARDIA CARDIAC HISTORY: CATHERIZATION: NO SURGERY: NO PROSTHETIC VALVE: NO PACEMAKER: NO MEASUREMENTS (cm) DIASTOLIC (NORMALS) SYSTOLIC (NORMALS) IVSd 0.9 (0.6-1.2) LA Diam 2.8 (1.9-4.0) LVEF 64% LVIDd 3.9 (3.5-5.7) LVIDs 2.5 (2.0-3.5) %FS 34% LVPWd 0.8 (0.6-1.2) Ao Diam 2.4 (2.0-3.7) 2 DIMENSIONAL ASSESSMENT: RIGHT ATRIUM: NORMAL LEFT ATRIUM: NORMAL RIGHT VENTRICLE: NORMAL LEFT VENTRICLE: NORMAL TRICUSPID VALVE: NORMAL MITRAL VALVE: NORMAL PULMONIC VALVE: NORMAL AORTIC VALVE: NORMAL PERICARDIAL EFFUSION: NONE AORTIC ROOT: NORMAL LEFT VENTRICULAR WALL MOTION: NORMAL DOPPLER/COLOR FLOW: NORMAL COMMENTS: NORMAL 2D ECHOCARDIOGRAM WITH DOPPLER. NO WALL MOTION ABNORMALITY. NO EFFUSION. TECHNOLOGIST: Saulo COOPER
[2018-09-20 14:00] VITALS: BP 127/75
[2018-09-20 14:17] VITALS: O2SAT 97
[2018-09-20] MEDS ORDERED: POTASSIUM CL SA 10 MEQ TAB PO ONE (15:00)
[2018-09-20] MEDS ORDERED: ATORVASTATIN 40 MG TAB PO SCH (21:00)
--- NOTE | 2018-09-21 06:33 | DS ---
Date of Discharge: 09/20/2018 Consultants: Dr. Logan with Cardiology. Procedures: None. Discharge Diagnoses: 1.Chest pain, acute coronary syndrome ruled out. 2.Palpitations, history of supraventricular tachycardia. Beta-barbara increased. 3.Essential hypertension, stable. 4.Generalized anxiety disorder. 5.Hepatitis B, on antiviral. Hospital Course: The patient is a 48-year-old female with history of arthritis, tachycardia, history of SVT, recent loop recorder, with chest pain. The patient's EKG did not show any specif ic changes. No ST elevations. ACS was ruled out. Cardiac enzymes were negative x3. Her lipid pane l was within normal limits. She did have some electrolyte abnormalities which were corrected. The p atlolly does have history of hepatitis B and is on antiviral medication. The patient was evaluated by Dr. Logan and echocardiogram was done. Echocardiogram showed EF of 64%. No wall motion abnormali ty. The patient was then cleared for discharge from Cardiology standpoint to go home on an increased dose of metoprolol. The patient was then cleared for discharge. She has been recommended to get an ablation done. However, due to financial restraints, has been unable to go for cardiac ablation. T he patient to followup with primary care physician in 2-3 days. Follow up with bookkeeping machine mechanic, Dr. Moses castro or Dr. Logan in 1 week. Return to ER for worsening condition. Diet: Heart healthy. Activity: As tolerated. Medications: As per medication reconciliation list. The patient's metoprolol will be increased to 5 0 mg twice a day. Currently, she is taking 50 mg daily. Physical Examination: General: Awake, alert, and oriented x3. No acute distress. CV: S1, S2. No murmurs. Respiratory: Moving air well bilaterally. Abdomen: Soft, nontender, nondistended. Positive bowel sounds. Extremities: No clubbing, cyanosis, or edema. Neurologic: Nonfocal. SA/MODL Voice ID: [id number] Report ID: [id number]
[2018-09-21] MEDS ORDERED: ENTECAVIR 0.5 MG PO SCH (09:00)
== END 2018-09-20 16:00 | disposition home or self-care (01) ==
LOC: ER 19:29 → ERHOLD 23:06 → 4TH 23:51
PROVIDERS: ADMIT Internal Medicine; ATTEND Internal Medicine
DX: R07.9 Chest pain, unspecified (principal); R00.2 Palpitations; I10 Essential (primary) hypertension; F41.1 Generalized anxiety disorder; B19.10 Unspecified viral hepatitis B without hepatic coma
CPT/HCPCS: 36415; 71045; 80048; 80061; 80076; 81003; 83735; 83880; 84484; 85025; 93005; 93306; 99285; G0378; J1650